=== PATIENT | female | born 1945 | race Caucasian/White ===

== ENCOUNTER 2019-02-02 13:17 | Inpatient (IN) | payer OTHER ==
[~2019-02-02] VITALS: Ht 154.9 cm; Wt 47.0 kg
[2019-02-02] MEDS ORDERED: ONDANSETRON 4 MG INJ IV STA ×2 (15:59→16:12)
[2019-02-02] MEDS ORDERED: morphine 4 MG/ML VIAL IV STA ×2 (15:59→16:12)
[2019-02-02] MEDS ORDERED: DOCU-144 PO (18:41)
[2019-02-02] MEDS ORDERED: IBUP-1542 PO (18:41)
[2019-02-02] MEDS ORDERED: ONDA4TAB14 PO (18:41)
--- NOTE | 2019-02-02 18:42 | ERD ---
ER Documentation Chief Complaint Chief Complaint epigastric AP radiating to L back X 1 wk, abdominal swelling, constipation HPI Patient is a 73-year-old female with coronary disease, hypertension, and diabetes who presents with abdominal pain. She also has shortness of breath with minimal exertion. She said that her abdominal pain started after an endoscopy in July. She has constipation and no bowel movements for 1 week. She has no vomiting. She said the pain in her abdomen radiates to her throat. She does have a primary doctor a Dr. Martínez. ROS All systems reviewed and are negative except as per history of present illness. Medications Home Meds Active Scripts Ondansetron (Ondansetron Odt) 4 Mg Tab.rapdis, 4 MG PO Q6H PRN for NAUSEA AND/OR VOMITING, #10 TAB Prov:JONY GONZALEZ MD 02/02/19 Ibuprofen* (Motrin*) 600 Mg Tab, 600 MG PO Q6H PRN for PAIN AND OR ELEVATED TEMP, #30 TAB Prov:JONY GONZALEZ MD 02/02/19 Docusate Sodium* (Colace*) 100 Mg Capsule, 100 MG PO TID, #30 CAP Prov:JONY GONZALEZ MD 02/02/19 Allergies Allergies: Coded Allergies: tetracycline (Verified Allergy, Unknown, 02/02/19) PMhx/Soc History of Surgery: Yes (hysterectomy, "heart stent") Anesthesia Reaction: No Hx Neurological Disorder: No Hx Respiratory Disorders: No Hx Cardiac Disorders: Yes (HTN) Hx Psychiatric Problems: No Hx Miscellaneous Medical Probl: Yes (DM, hypothyroid) Hx Alcohol Use: No Hx Substance Use: No Hx Tobacco Use: No Smoking Status: Never smoker FmHx Family History: diabetes Physical Exam Vitals Vital Signs Date Temp Pulse Resp B/P (MAP) Pulse Ox O2 O2 Flow FiO2 Time Delivery Rate 02/02/19 69 18 106/52 99 Room Air 18:40 (70) 02/02/19 99.2 73 18 114/79 100 13:44 (91) Physical Exam Const: Mild distress Head: Atraumatic Eyes: Normal Conjunctiva ENT: Normal External Ears, Nose and Mouth. Neck: Full range of motion. No meningismus. Resp: Clear to auscultation bilaterally Cardio: Regular rate and rhythm, no murmurs Abd: Soft, epigastric tenderness to palpation without rebound or guarding Skin: Pale skin Back: No midline or flank tenderness Ext: No cyanosis, or edema Neur: Awake and alert Psych: Normal Mood and Affect Result Diagram: 02/02/19 1559 02/02/19 1559 Results 24 hrs Laboratory Tests Test 02/02/19 15:59 02/02/19 16:00 White Blood Count 8.7 10^3/ul Red Blood Count 3.35 10^6/ul Hemoglobin 8.0 g/dl Hematocrit 26.4 % Mean Corpuscular Volume 78.8 fl Mean Corpuscular Hemoglobin 23.9 pg Mean Corpuscular Hemoglobin Concent 30.3 g/dl Red Cell Distribution Width 15.5 % Platelet Count 230 10^3/UL Mean Platelet Volume 9.7 fl Immature Granulocytes % 0.600 % Neutrophils % 60.6 % Lymphocytes % 29.2 % Monocytes % 8.7 % Eosinophils % 0.3 % Basophils % 0.6 % Nucleated Red Blood Cells % 0.0 /100WBC Immature Granulocytes # 0.050 10^3/ul Neutrophils # 5.3 10^3/ul Lymphocytes # 2.5 10^3/ul Monocytes # 0.8 10^3/ul Eosinophils # 0.0 10^3/ul Basophils # 0.1 10^3/ul Nucleated Red Blood Cells # 0.0 10^3/ul Sodium Level 143 mmol/L Potassium Level 4.2 mmol/L Chloride Level 107 mmol/L Carbon Dioxide Level 24 mmol/L Anion Gap 12 Blood Urea Nitrogen 11 mg/dl Creatinine 1.13 mg/dl Est Glomerular Filtrat Rate mL/min mL/min Glucose Level 111 mg/dl Calcium Level 9.3 mg/dl Total Bilirubin 0.3 mg/dl Direct Bilirubin 0.00 mg/dl Indirect Bilirubin 0.3 mg/dl Aspartate Amino Transf (AST/SGOT) 12 IU/L Alanine Aminotransferase (ALT/SGPT) 16 IU/L Alkaline Phosphatase 86 IU/L Troponin I < 0.012 ng/ml Total Protein 6.2 g/dl Albumin 3.7 g/dl Globulin 2.50 g/dl Albumin/Globulin Ratio 1.48 Lipase 96 U/L Urine Color STRAW Urine Clarity CLEAR Urine pH 6.0 Urine Specific [place] 1.005 Urine Ketones NEGATIVE mg/dL Urine Nitrite NEGATIVE mg/dL Urine Bilirubin NEGATIVE mg/dL Urine Urobilinogen NEGATIVE mg/dL Urine Leukocyte Esterase 1+ Felipa/ul Urine Microscopic RBC 1 /HPF Urine Microscopic WBC 4 /HPF Urine Squamous Epithelial Cells FEW /HPF Urine Hemoglobin 1+ mg/dL Urine Glucose NEGATIVE mg/dL Urine Total Protein NEGATIVE mg/dl Current Medications Medications Dose Sig/Anna Start Time Status Last (Trade) Ordered Route PRN Stop Time Admin Dose Reason Admin Morphine 4 mg ONCE STAT 02/02/19 DC 02/02/19 Sulfate IV 15:59 16:19 (morphine) 02/02/19 16:00 Ondansetron 4 mg ONCE STAT 02/02/19 DC 02/02/19 HCl (Zofran IV 15:59 16:19 Inj) 02/02/19 16:00 Morphine 4 mg ONCE STAT 02/02/19 DC Sulfate IV 16:12 (morphine) 02/02/19 16:26 Ondansetron 4 mg ONCE STAT 02/02/19 DC HCl (Zofran IV 16:12 Inj) 02/02/19 16:26 Sodium 0 ml @ 0 Q0M ONCE 02/02/19 DC Chloride mls/hr IV 18:48 02/02/19 18:49 Ondansetron 4 mg ER BRIDGE 02/02/19 HCl (Zofran PRN IV 20:00 Inj) NAUSEA/VOMITI 02/03/19 19:59 NG 650 mg ER BRIDGE 02/02/19 Acetaminophen PRN PO 20:00 (Tylenol .MILD PAIN 02/03/19 19:59 Tab) 1-3 OR TEMP Procedures/MDM EKG read by me: Rate/Rhythm: Regular rate and rhythm at a rate of 69 Intervals: Normal Impression: No evidence of ischemia or arrhythmia CT abdomen pelvis read by radiology. Ultrasound of the gallbladder read by radiology. Patient is a 73-year-old female with multiple comorbidities who presents with abdominal pain and shortness of breath. I believe she has acute symptomatic anemia with a hemoglobin of 8.0. She will be transfused 2 units of packed red blood cells. CT abdomen and pelvis shows no sign of surgical process. Ultrasound the gallbladder shows no cholecystitis. The patient will be admitted to the care of Dr. Butt from the panel team to a telemetry observation bed for blood transfusion and evaluation of abdominal pain. At this point I doubt appendicitis, cholecystitis, pancreatitis, or bowel obstruction. Critical Care: Time: 35 minutes excluding all billable procedures. Treatments/Evaluations: Close monitoring and treatment of unstable vital signs, cardiorespiratory, and neurologic status, while maintaining tight balance of fluid, respiratory, and cardiac interventions. Departure Diagnosis: Primary Impression: Abdominal pain Abdominal location: epigastric Qualified Codes: R10.13 - Epigastric pain Additional Impressions: Anemia Anemia type: unspecified type Qualified Codes: D64.9 - Anemia, unspecified Constipation Constipation type: unspecified constipation type Qualified Codes: K59.00 - Constipation, unspecified Condition: Fair Patient Instructions: Abdominal Pain, Anemia, Constipation (Adult) Referrals: Dr. Martínez Additional Instructions: Llame al doctor MAANA y anca haroon PHILIPPE PARA DENTRO DE 1-2 HUNG.Dgale a la secretaria que nosotros le instruimos hacer esta philippe.Avise o llame si ferguson condicin se empeora antes de la philippe. Regresa aqui si peor o no mejor. JONY GONZALEZ MD Feb 02, 2019 18:42
[2019-02-02] MEDS ORDERED: SOD CHLORIDE 0.9% 0 ML IV ONE (18:48)
[2019-02-02] MEDS ORDERED: METF100010 PO (19:50)
[2019-02-02] MEDS ORDERED: ESCI5TAB10 PO (19:50)
[2019-02-02] MEDS ORDERED: BENA5TAB33 PO (19:51)
[2019-02-02] MEDS ORDERED: METO-335 PO (19:51)
[2019-02-02] MEDS ORDERED: PANT40TA4 PO (19:51)
[2019-02-02] MEDS ORDERED: CLOP75TA19 PO (19:52)
[2019-02-02] MEDS ORDERED: LEVO125T7 PO (19:52)
[2019-02-02] MEDS ORDERED: ATOR40TA68 PO (19:52)
[2019-02-02] MEDS ORDERED: ASPI-817 PO (19:53)
[2019-02-02] MEDS ORDERED: SITA100T11 PO (19:53)
--- NOTE | 2019-02-02 19:55 | HP ---
Date/Time of Note Date/Time of Note DATE: 02/02/19 TIME: 19:52 Assessment/Plan VTE Prophylaxis SCD applied (from Nsg): Yes Pharmacological prophylaxis: NA/contraindicated Pharm contraindication: low risk/ambulating Lines/Catheters IV Catheter Type (from Nrsg): Saline Lock Assessment/Plan Hospital Course This is a 73-year female being admitted to the telemetry floor for: #1 Dyspnea: Possibly secondary to symptomatic anemia versus undiagnosed CHF. Patient is receiving 2 units of PRBCs in the emergency department. We do not have a previous baseline hemoglobin. Will check a stool occult blood. Check iron stores. D-dimer level is elevated, will check a CTA of the chest. Will order an echocardiogram. We will give a dose of Lasix 40 mg IV x1. BNP elevated at 1550. We will also check bilateral venous Dopplers given elevated d-dimer. #2 symptomatic microcytic anemia: We will check stool occult blood, no signs of any vaginal bleeding. Patient is ordered 2 units of PRBCs in the ED. Will check iron stores. This possibly could be chronic given her history of uterine cancer. #3 abdominal pain: CAT scan shows dilated loops of bowel possibly secondary to enteritis. No mention of obstruction. She does report she has not had a bowel movement in 7 days. This also could be a result of bladder irritation from her UTI. We will put her on bowel regimen of Colace and MiraLAX. We will also treat her for UTI with ceftriaxone IV x1 followed by Macrobid. #4 urinary tract infection: Ceftriaxone 1 g IV every 24 hours, creatinine clearance is 59 if this improves through the course can switch her to Macrobid. #5 acute versus acute on chronic kidney injury: Creatinine is 1.13. At the current time will hold HAYLIE inhibitor. She does appear to be in a mild CHF exacerbation we will give her Lasix and monitor her renal function. Will avoid NSAIDs. Avoid nephrotoxic agents #6 pulmonary nodule: Pulmonary nodule seen on CT of the abdomen and pelvis. Given the fact that she has elevated d-dimer and a history of uterine cancer, I will proceed with a CTA of the chest to further evaluate. #7 hypertension: We will hold HAYLIE inhibitor at the current time given VERONICA, continue beta-cuauhtemoc #8 hyperlipidemia: Continue statin #9 hypothyroidism, continue levothyroxine, check TSH #10 questionable coronary artery disease: She did not report any cardiac stents. We will need to confirm this with the patient, continue Plavix #11 diabetes mellitus: We will hold home oral medications at the current time, insulin sliding scale, check hemoglobin A1c #12 history of uterine cancer: Status post hysterectomy. CT of the abdomen pelvis did show pulmonary nodule, will obtain a CT of the chest given her elevated d-dimer to assess further. #13 gastritis: Continue PPI, history of EGD and colonoscopy in July 2018 that apparently were normal aside from gastritis. #14 DVT GI prophylaxis: SCDs, PPI Further treatment strategy will be implemented as per the clinical course Result Diagram: 02/02/19 1559 02/02/19 1559 Results 24hrs Laboratory Tests Test 02/02/19 15:59 02/02/19 16:00 White Blood Count 8.7 Red Blood Count 3.35 L Hemoglobin 8.0 L Hematocrit 26.4 L Mean Corpuscular Volume 78.8 L Mean Corpuscular Hemoglobin 23.9 L Mean Corpuscular Hemoglobin Concent 30.3 L Red Cell Distribution Width 15.5 H Platelet Count 230 Mean Platelet Volume 9.7 Immature Granulocytes % 0.600 H Neutrophils % 60.6 Lymphocytes % 29.2 Monocytes % 8.7 Eosinophils % 0.3 Basophils % 0.6 Nucleated Red Blood Cells % 0.0 Immature Granulocytes # 0.050 H Neutrophils # 5.3 Lymphocytes # 2.5 Monocytes # 0.8 Eosinophils # 0.0 Basophils # 0.1 Nucleated Red Blood Cells # 0.0 Sodium Level 143 Potassium Level 4.2 Chloride Level 107 Carbon Dioxide Level 24 Anion Gap 12 Blood Urea Nitrogen 11 Creatinine 1.13 H Est Glomerular Filtrat Rate mL/min Glucose Level 111 Calcium Level 9.3 Total Bilirubin 0.3 Direct Bilirubin 0.00 Indirect Bilirubin 0.3 Aspartate Amino Transf (AST/SGOT) 12 L Alanine Aminotransferase (ALT/SGPT) 16 Alkaline Phosphatase 86 Troponin I < 0.012 Total Protein 6.2 Albumin 3.7 Globulin 2.50 Albumin/Globulin Ratio 1.48 Lipase 96 Urine Color STRAW Urine Clarity CLEAR Urine pH 6.0 Urine Specific [place] 1.005 Urine Ketones NEGATIVE Urine Nitrite NEGATIVE Urine Bilirubin NEGATIVE Urine Urobilinogen NEGATIVE Urine Leukocyte Esterase 1+ H Urine Microscopic RBC 1 Urine Microscopic WBC 4 Urine Squamous Epithelial Cells FEW Urine Hemoglobin 1+ H Urine Glucose NEGATIVE Urine Total Protein NEGATIVE HPI/ROS Admit Date/Time Admit Date/Time Hx of Present Illness Chief complaint: Abdominal pain, shortness of breath This is a 73-year-old female with coronary disease, hypertension, and diabetes who presents with abdominal pain. She also has shortness of breath with minimal exertion. She said that her abdominal pain started after an endoscopy in July. She has constipation and no bowel movements for 1 week. She has no vomiting. She said the pain in her abdomen radiates to her throat. She reports in acidic-like feeling in her throat. She does report mild lower extremity swelling. She denies any chest pain or wheezing. She does have a primary doctor a Dr. Martínez. Allergies: Tetracycline Medications: See Jan Const: As per HPI Eyes : No pain discharge or redness or change in visual acuity ENT: No pain, sore throat, congestion, congestion, dysphagia or discharge Respiratory: As per HPI Cardiovascular: As per HPI GI : As per HPI Genitourinary: No dysuria, hematuria, flank pain , discharge or CVA tenderness Musculoskeletal: As per HPI Skin: No rash, bruising or hives Neuro: No headache, dizziness, syncope, seizure, focal weakness Endocrine: No polyuria, polydipsia, temperature intolerance Psych: No hallucination, depression, anxiety or suicidal ideation PMH/Family/Social Past Medical History Diabetes mellitus, hypertension, hyperlipidemia, gastritis, hypothyroidism, arthritis, history of uterine cancer, depression Medications Current Medications Ondansetron HCl (Zofran Inj) 4 mg ER BRIDGE PRN IV NAUSEA/VOMITING; Start 02/02/19 at 20:00; Stop 02/03/19 at 19:59 Acetaminophen (Tylenol Tab) 650 mg ER BRIDGE PRN PO .MILD PAIN 1-3 OR TEMP; Start 02/02/19 at 20:00; Stop 02/03/19 at 19:59 IV Flush (NS 3 ml) 3 ml PER PROTOCOL IV ; Start 02/02/19 at 20:00; Status UNV Ondansetron HCl (Zofran Inj) 4 mg Q6H PRN IV NAUSEA/VOMITING; Start 02/02/19 at 20:00; Status UNV Furosemide (Lasix) 40 mg ONCE ONCE IV ; Start 02/02/19 at 20:00; Stop 02/02/19 at 20:01; Status UNV Acetaminophen (Tylenol Tab) 650 mg Q6H PRN PO .PAIN 1-3 OR TEMP; Start 02/02/19 at 20:00; Status UNV Docusate Sodium (Colace) 100 mg Q12H PRN PO .CONSTIPATION; Start 02/02/19 at 20:00; Status UNV Bisacodyl (Dulcolax) 5 mg DAILY PRN PO .CONSTIPATION; Start 02/02/19 at 20:00; Status UNV Coded Allergies: tetracycline (Verified Allergy, Unknown, 02/02/19) Past Surgical History Hysterectomy Family History Significant Family History: no pertinent family hx Social History Alcohol Use: none Smoking Status: Never smoker Drug Use: none Exam/Review of Systems Vital Signs Vitals Vital Signs Date Temp Pulse Resp B/P (MAP) Pulse Ox O2 O2 Flow FiO2 Time Delivery Rate 02/02/19 69 18 106/52 99 Room Air 18:40 (70) 02/02/19 99.2 13:44 Exam Exam General: Patient is a pleasant female currently lying in bed in mild abdominal discomfort HEENT: Atraumatic, normocephalic. The pupils are equal, round and reactive. Extraocular motor are intact Neck: Supple with full range of motion. No rigidity or meningismus Chest: Nontender Lungs: Clear to auscultation bilaterally no crackles rales or wheezing Heart: Normal S1-S2, Regular rhythm and rate. No overt murmurs appreciated on auscultation Abdomen: Obese, generalized tenderness to palpation, nondistended , bowel sounds are present. No guarding no rebound tenderness , No masses or organomegaly. No costovertebral temporal angle mass Extremities: Normal to inspection, no edema no cyanosis Neurologic: Normal mental status, speech normal, cranial nerves II through XII are intact, motor and sensory are intact, Additional Comments PROCEDURE: US right upper quadrant abdomen. CLINICAL INDICATION: Right upper quadrant abdominal pain TECHNIQUE: Multiple real-time images were acquired of the patient's right upper quadrant abdomen utilizing a high resolution transducer. COMPARISON: None FINDINGS: The liver demonstrates mild increased echogenicity. The liver is normal in size and measures 19.8 cm in length. No focal solid lesions are seen. The portal vein is patent with normal direction of flow. No intrahepatic biliary d ilatation is seen. No gallstones are identified within the gallbladder. There is no pericholecyst ic fluid or gallbladder wall thickening. The common bile duct measures 3.4 mm in maximal diameter. The visualized portions of the pancreas are unremarkable. No free fluid is identified. The right kidney demonstrates normal echogenicity and cortical thickness. The right kidney measures 9.1 cm. There are no right kidney stones. There is no evidence of right hydronephrosis. IMPRESSION: 1. No acute abnormality. No gallstones or acute cholecystitis. No biliary ductal dilatation. 2. Mild increased echogenicity of the liver may represent hepatic steatosis. RPTAT: KK Adal Mondragon Physician Date Time Electronically viewed and signed by Adal Mondragon Physician on 02/02/2019 16:56 HtN/ CC: JONY GONZALEZ MD [id number] PROCEDURE: CT Abdomen and Pelvis without contrast CLINICAL INDICATION: Abdominal pain TECHNIQUE: Transaxial computed tomographic images of the abdomen and pelvis were obtained without intravenous contrast. Coronal and sagittal reformatted images were provided. DICOM images are available. Radiation dose: CTDIvol (mGy) = 20.58; total DLP (mGy.cm) = 1186.98. One or more of the following dose reduction techniques were used: - Automated exposure control. - Adjustment of the mA and/or kV according to patient size. - Use of iterative reconstruction technique. COMPARISON: Abdominal sonogram performed earlier on the same day. FINDINGS: The visualized lung bases demonstrate patchy bibasilar ground-glass opacities. Scattered small right lower lobe lung nodules measure up to 5 mm. There is mild bibasilar interlobular septal line thickening. There is trace left pleural effusion and mild left basilar atelectasis. Heart is mildly enlarged and partially imaged. Pancreas is moderately atrophic. Kidneys are mildly atrophic. The liver, gallbladder, spleen, adrenal glands, and kidneys have otherwise normal noncontrast appearance. There is no calcific renal calculus or hydronephrosis. There is no evidence of intestinal obstruction. There are multiple fluid-filled nondilated distal small bowel loops, nonspecific finding. The appendix is normal. There is severe atherosclerotic changes of the aorta and iliac arteries. There is no abdominal aortic aneurysm. There is no free intraperitoneal air or fluid. Urinary bladder is normal. Uterus is absent. There is no suspicious mesenteric or retroperitoneal lymphadenopathy. Bone window demonstrates moderate discogenic degenerative changes of the lumbar spine. IMPRESSION: 1. Fluid filled nondilated distal small bowel loops, nonspecific finding which could be seen in the setting of enteritis. 2. Mild cardiomegaly and findings suggestive of mild bibasilar pulmonary interstitial edema. 3. Trace left pleural effusion and mild left basilar atelectasis. 4. Small right basilar lung nodules, indeterminate. If the patient is low risk, consider option follow-up noncontrast chest CT at 12 months. RPTAT:HAJM Physician Vera Date Time Electronically viewed and signed by Physician Vera on 02/02/2019 18:21 RM/ CC: JONY GONZALEZ MD [id number] EKG Rate/Rhythm: Regular rate and rhythm at a rate of 69 Intervals: Normal Impression: No evidence of ischemia or arrhythmia MEAGHAN GARCIA Feb 02, 2019 19:55
[2019-02-02] MEDS ORDERED: ONDANSETRON 4 MG INJ IV PRN ×2 (20:00)
[2019-02-02] MEDS ORDERED: LIDOCAINE/MYLANTA 40 ML BTL PO ONE (20:00)
[2019-02-02] MEDS ORDERED: ACETAMINOPHEN 325 MG TAB PO PRN (20:00)
[2019-02-02] MEDS ORDERED: NACL 0.9% 3 ML SYG IV SCH (20:00)
[2019-02-02] MEDS ORDERED: DOCUSATE SODIUM 100 MG CAP PO PRN (20:00)
[2019-02-02] MEDS ORDERED: FUROSEMIDE 40 MG INJ IV ONE (20:00)
[2019-02-02] MEDS ORDERED: LORAZEPAM 2 MG INJ IV STA (20:14)
[2019-02-02] MEDS ORDERED: SOD CHLORIDE 0.9% 100 ML ONE (20:59)
[2019-02-02] MEDS ORDERED: IOHEXOL 100 ML ONE (20:59)
[2019-02-02] MEDS ORDERED: NITROFURANTOIN (SR) 100 MG CAP PO SCH (21:00)
[2019-02-02] MEDS ORDERED: CEFTRIAXONE 1 GM/50 ML (PMX) 50 ML IVPB ONE (21:00)
[2019-02-02 22:53] VITALS: PULSE 69; BMI 35.9
[2019-02-03] VITALS (13 sets, daily range): BP systolic 107–145; BP diastolic 51–66; PULSE 59–73; RESP 16–18; Ht 154.9 cm; Wt 47.0 kg
[2019-02-03] MEDS ORDERED: LIDOCAINE/MYLANTA 40 ML BTL PO ONE (01:00)
[2019-02-03] MEDS: DOCUSATE SODIUM 100 MG CAP PO SCH ×3 (03:56→20:22)
[2019-02-03] MEDS: PANTOPRAZOLE (EC) 40 MG TAB PO SCH ×2 (03:56→06:41)
[2019-02-03] MEDS: POLYETHYLENE GLYCOL 17 GM PACKET PO SCH ×2 (03:57→08:24)
[2019-02-03] MEDS: LEVOTHYROXINE 125 MCG TAB PO SCH (06:41)
[2019-02-03] MEDS: CLOPIDOGREL 75 MG TAB PO SCH (08:24)
[2019-02-03] MEDS: ASPIRIN (EC) 81 MG TAB PO SCH (08:25)
[2019-02-03] MEDS: ESCITALOPRAM 10 MG TAB PO SCH (08:25)
[2019-02-03] MEDS: FUROSEMIDE 40 MG INJ IV SCH (08:26)
[2019-02-03] MEDS: METOPROLOL (XL) 25 MG TAB PO SCH (08:27)
[2019-02-03] MEDS ORDERED: BENAZEPRIL 5 MG TAB PO SCH (09:00)
--- NOTE | 2019-02-03 10:48 | RADRPT ---
Echocardiogram Report Patient Name: ADRIANA GRIJALVAPatient ID: [id number] : 1945 (73y 8m)Study Date: 02/03/2019 7:32:20 AM Gender: FAccession #: [id number] Tech: DE Location: Ref.Physician: MEAGHAN GARCIA Height(Cm): BSA: Weight(Kg): Quality: AdequateAccount #: Procedures: Echocardiographic Report: Transthoracic echocardiogram with complete 2D, M-Mode, and doppler examination. Indications: Dyspnea, Cardiomegaly. Measurements: 2D/M Mode Doppler Measurement Value Normal Range Measurement Value Normal Range LVIDd 2D 4.7 [ 3.8 - 5.2 ] cm AV Peak Jose 1.5 [ 100.0 - 170.0 ] cm/sec LVIDs 2D 3.4 [ 2.2 - 3.5 ] cm AV Peak PG 9.0 [ 2.0 - 9.0 ] mmHg LVPWd 2D 1.2 [ 0.6 - 0.9 ] cm LVOT Peak Jose 0.9 [ 70.0 - 110.0 ] cm/sec IVSd 2D 1.3 [ 0.6 - 0.9 ] cm LVOT Peak PG 3.0 [ 2.0 - 6.0 ] mmHg AoR Diam 2D 2.5 [ 2.3 - 3.1 ] cm MV E Peak Jose 1.0 [ 60.0 - 130.0 ] cm/sec EDV 2D 102.0 [ 46.0 - 106.0 ] ml MV A Peak Jose 0.6 [ 100.0 - 120.0 ] cm/sec ESV 2D 46.4 [ 14.0 - 42.0 ] ml MV E/A 1.6 [ 0.8 - 1.5 ] ratio EF 2D 54.5 [ 54.0 - 74.0 ] percent MV Decel Time 239 [ 104 - 258 ] msec LA Dimen 2D 3.8 [ 2.7 - 3.8 ] cm Lat E` Jose 0.1 [ 10.0 - 15.0 ] cm/sec Lateral E/E` 14.6 [ 1.0 - 2.0 ] ratio MV E/A 1.6 [ 0.8 - 1.5 ] ratio TR Peak Jose 2.9 [ 100.0 - 280.0 ] cm/sec TR Peak PG 33.0 mmHg RVSP 43.0 [ 10.0 - 36.0 ] mmHg RA Pressure 10.0 mmHg Findings: Left Ventricle: Normal left ventricular cavity size. Mild concentric left ventricular hypertrophy. Mild left ventricular systolic dysfunction. Ejection fraction is visually estimated at 45 %. Abnormal Diastolic Function. Multiple segmental wall motion abnormalities. Right Ventricle: Normal right ventricular size. Normal right ventricular systolic function. Left Atrium: The left atrium is normal in size. Right Atrium: The right atrium is normal in size. Mitral Valve: Normal appearance of the mitral valve. Mild mitral annular calcification. Trace mitral regurgitation. Aortic Valve: No significant aortic stenosis or insufficiency. Aortic cusps appear mildly calcified. Tricuspid Valve: Normal appearance of the tricuspid valve. Estimated peak PA systolic pressure 43 mmHg. There is mild tricuspid regurgitation. Pulmonic Valve: Pulmonic valve not well visualized. Pericardium: Normal pericardium with no significant pericardial effusion. Aorta: Normal aortic root. IVC: Normal size and normal respiratory collapse consistent with normal right atrial pressure. Conclusions: Normal left ventricular cavity size. Mild concentric left ventricular hypertrophy. Mild left ventricular systolic dysfunction. Ejection fraction is visually estimated at 45 %. Abnormal Diastolic Function. Multiple segmental wall motion abnormalities. Normal appearance of the mitral valve. Mild mitral annular calcification. Trace mitral regurgitation. No significant aortic stenosis or insufficiency. Aortic cusps appear mildly calcified. Normal appearance of the tricuspid valve. Estimated peak PA systolic pressure 43 mmHg. There is mild tricuspid regurgitation. Normal size and normal respiratory collapse consistent with normal right atrial pressure. Electronically Signed By: Rodney López 2019-02-03 10:48:17 PDT
[2019-02-03] MEDS: BISACODYL (EC) 5 MG TAB PO PRN (11:02)
--- NOTE | 2019-02-03 11:23 | CONS ---
Assessment/Plan Assessment/Plan Hospital Course (Demo Recall) Congestive heart failure probably acute secondary systolic and diastolic heart failure as well as severe anemia Anemia etiology unclear Diabetes Hypertension Possible history of coronary artery disease and PCI Depression History of gynecological cancers Recommendations: Continue with IV Lasix daily and adjust as needed Anemia workup as per internal medicine Continue with HAYLIE inhibitor Diabetic management as per internal medicine Thank you for his referral. We will continue to follow along with you HENNY GALINDO MD FAC Consultation Date/Type/Reason Admit Date/Time Date of Consultation: Feb 03, 2019 Type of Consult Cardiology Reason for Consultation CV Requesting Provider: MEAGHAN GARCIA Date/Time of Note DATE: 02/03/19 TIME: 11:18 Hx of Present Illness Interventional cardiology consultation note Chief complaint: Abdominal pain. Shortness of breath Reason for consult: CHF History of present illness: Thank you for this referral. This is a 81-year-old female who presented to emergency room with mostly complaint of diffuse abdominal discomfort and pain. Patient also has had shortness of breath. Denies any chest pain or pressure to me. She was noted to be severely anemic hemoglobin of 8 as well as chest x-ray showing fluid overload/congestive heart failure. Currently asked to evaluate and treat. Allergies: Tetracycline Medications were reviewed as per medical reconciliation sheet Family history: Patient's son with coronary artery disease Social history: Does not smoke or drink Past medical history: Diabetes mellitus, hypertension, hyperlipidemia, gastritis, hypothyroidism, arthritis, history of uterine cancer, depression She also reports to me that she probably has had angioplasty and stent done many years ago although details not clear and she is not very clear about it Review of system: Patient denies all others except for above-mentioned Past Medical History Home Meds Active Scripts Ondansetron (Ondansetron Odt) 4 Mg Tab.rapdis, 4 MG PO Q6H PRN for NAUSEA AND/OR VOMITING, #10 TAB Prov:JONY GONZALEZ MD 02/02/19 Ibuprofen* (Motrin*) 600 Mg Tab, 600 MG PO Q6H PRN for PAIN AND OR ELEVATED TEMP, #30 TAB Prov:JONY GONZALEZ MD 02/02/19 Docusate Sodium* (Colace*) 100 Mg Capsule, 100 MG PO TID, #30 CAP Prov:JONY GONZALEZ MD 02/02/19 Reported Medications Aspirin* (Aspirin* EC) 81 Mg Tablet.dr, 81 MG PO DAILY, TAB 02/02/19 Sitagliptin* (Januvia*) 100 Mg Tablet, 100 MG PO DAILY, #30 TAB 02/02/19 Clopidogrel Bisulfate* (Clopidogrel Bisulfate*) 75 Mg Tablet, 75 MG PO DAILY, #30 TAB 02/02/19 Atorvastatin* (Atorvastatin*) 40 Mg Tablet, 40 MG PO QHS, #30 TAB 02/02/19 Levothyroxine Sodium* (Levothyroxine Sodium*) 125 Mcg Tablet, 125 MCG PO BEFORE BREAKFAST, #30 TAB 02/02/19 Metoprolol Succinate* (Toprol XL*) 25 Mg Tab.sr.24h, 25 MG PO DAILY, #30 TAB 02/02/19 Pantoprazole* (Pantoprazole*) 40 Mg Tablet.dr, 40 MG PO AC BREAKFAST, TAB 02/02/19 Benazepril Hcl* (Benazepril Hcl*) 5 Mg Tablet, 5 MG PO DAILY, #30 TAB 02/02/19 Metformin Hcl* (Metformin Hcl*) 1,000 Mg Tablet, 1000 MG PO WITH BREAKFAST DINNE, #60 TAB 02/02/19 Escitalopram Oxalate* (Escitalopram Oxalate*) 5 Mg Tablet, 5 MG PO DAILY, #30 TAB 02/02/19 Medications Current Medications IV Flush (NS 3 ml) 3 ml PER PROTOCOL IV ; Start 02/02/19 at 20:00 Ondansetron HCl (Zofran Inj) 4 mg Q6H PRN IV NAUSEA/VOMITING; Start 02/02/19 at 20:00 Acetaminophen (Tylenol Tab) 650 mg Q6H PRN PO .PAIN 1-3 OR TEMP; Start 02/02/19 at 20:00 Docusate Sodium (Colace) 100 mg Q12H PRN PO .CONSTIPATION; Start 02/02/19 at 20:00 Bisacodyl (Dulcolax) 5 mg DAILY PRN PO .CONSTIPATION Last administered on 02/03/19at 11:02; Admin Dose 5 MG; Start 02/02/19 at 20:00 Docusate Sodium (Colace) 100 mg BID PO Last administered on 02/03/19at 08:25; Admin Dose 100 MG; Start 02/03/19 at 01:00 Polyethylene Glycol (Miralax) 17 gm DAILY PO Last administered on 02/03/19 08:24; Admin Dose 17 GM; Start 02/03/19 at 01:00 Pantoprazole (Protonix Tab) 40 mg DAILY@06 PO Last administered on 02/03/19 06:41; Admin Dose 40 MG; Start 02/03/19 at 01:00 Furosemide (Lasix) 40 mg DAILY IV Last administered on 02/03/19 08:26; Admin Dose 40 MG; Start 02/03/19 at 09:00 Aspirin (Halfprin) 81 mg DAILY PO Last administered on 02/03/19 08:25; Admin Dose 81 MG; Start 02/03/19 at 09:00 Atorvastatin Calcium (Lipitor) 40 mg QHS PO ; Start 02/03/19 at 21:00 Clopidogrel Bisulfate (plaVIX) 75 mg DAILY PO Last administered on 02/03/19 08:24; Admin Dose 75 MG; Start 02/03/19 at 09:00 Escitalopram Oxalate (Lexapro) 5 mg DAILY PO Last administered on 02/03/19 08:25; Admin Dose 5 MG; Start 02/03/19 at 09:00 Levothyroxine Sodium (Synthroid) 125 mcg BEFORE BREAKFAST PO Last administered on 02/03/19 06:41; Admin Dose 125 MCG; Start 02/03/19 at 07:00 Metoprolol Succinate (Toprol Xl) 25 mg DAILY PO Last administered on 02/03/19 08:27; Admin Dose 25 MG; Start 02/03/19 at 09:00 Ceftriaxone Sodium 50 ml @ 100 mls/hr Q24H IVPB ; Start 02/03/19 at 20:00 Allergies: Coded Allergies: tetracycline (Verified Allergy, Unknown, 02/02/19) Social History Alcohol Use: none Smoking Status: Never smoker Drug Use: none Exam/Review of Systems Vital Signs Vitals Vital Signs Date Temp Pulse Resp B/P (MAP) Pulse Ox O2 O2 Flow FiO2 Time Delivery Rate 02/03/19 73 08:20 02/03/19 98.6 16 145/66 99 07:33 (92) 02/02/19 Room Air 22:00 Intake and Output 02/02/19 02/02/19 02/03/19 1515:00 23:00 07:00 IntakeIntake Total 350 ml 750 ml BalanceBalance 350 ml 750 ml Exam Exam General: Obese female in no acute distress HEENT: NC/AT. pupils are equal. round. NECK: NO JVD. no stridor. CV: RRR. systolic murmur; no gallop or rubs. PULM: no wheezing or rhonchi. GI: SOFT, NT, ND, no rebound or guarding Extremity: trace B/L LE edema. no clubbing. neuro: awake and alert, OX3. Psych: calm and pleasant rectal: deferred : normal EKG showed normal sinus rhythm. Poor R wave progression Echocardiogram was personally reviewed which shows: Normal left ventricular cavity size. Mild concentric left ventricular hypertrophy. Mild left ventricular systolic dysfunction. Ejection fraction is visually estimated at 45 %. Abnormal Diastolic Function. Multiple segmental wall motion abnormalities. Normal appearance of the mitral valve. Mild mitral annular calcification. Trace mitral regurgitation. No significant aortic stenosis or insufficiency. Aortic cusps appear mildly calcified. Normal appearance of the tricuspid valve. Estimated peak PA systolic pressure 43 mmHg. There is mild tricuspid regurgitation. Normal size and normal respiratory collapse consistent with normal right atrial pressure. Labs Result Diagram: 02/03/19 0553 02/03/19 0553 Results 24hrs Laboratory Tests Test 02/02/19 15:59 02/02/19 16:00 02/03/19 05:53 White Blood Count 8.7 8.8 Red Blood Count 3.35 L 4.09 #L Hemoglobin 8.0 L 9.9 #L Hematocrit 26.4 L 32.3 #L Mean Corpuscular Volume 78.8 L 79.0 L Mean Corpuscular Hemoglobin 23.9 L 24.2 L Mean Corpuscular Hemoglobin Concent 30.3 L 30.7 L Red Cell Distribution Width 15.5 H 15.4 H Platelet Count 230 217 Mean Platelet Volume 9.7 10.3 Immature Granulocytes % 0.600 H 0.300 Neutrophils % 60.6 59.3 Lymphocytes % 29.2 26.7 Monocytes % 8.7 12.4 H Eosinophils % 0.3 0.7 Basophils % 0.6 0.6 Nucleated Red Blood Cells % 0.0 0.0 Immature Granulocytes # 0.050 H 0.030 Neutrophils # 5.3 5.2 Lymphocytes # 2.5 2.4 Monocytes # 0.8 1.1 H Eosinophils # 0.0 0.1 Basophils # 0.1 0.1 Nucleated Red Blood Cells # 0.0 0.0 D-Dimer 1307.24 H D-Dimer Comment Sodium Level 143 142 Potassium Level 4.2 4.0 Chloride Level 107 102 Carbon Dioxide Level 24 30 Anion Gap 12 10 Blood Urea Nitrogen 11 14 Creatinine 1.13 H 1.09 H Est Glomerular Filtrat Rate mL/min Glucose Level 111 161 Calcium Level 9.3 9.1 Total Bilirubin 0.3 0.7 Direct Bilirubin 0.00 0.00 Indirect Bilirubin 0.3 0.7 Aspartate Amino Transf (AST/SGOT) 12 L 14 L Alanine Aminotransferase (ALT/SGPT) 16 11 L Alkaline Phosphatase 86 83 Troponin I < 0.012 B-Type Natriuretic Peptide 1550 H Total Protein 6.2 6.6 Albumin 3.7 3.7 Globulin 2.50 2.90 Albumin/Globulin Ratio 1.48 1.27 Lipase 96 Urine Color STRAW Urine Clarity CLEAR Urine pH 6.0 Urine Specific [place] 1.005 Urine Ketones NEGATIVE Urine Nitrite NEGATIVE Urine Bilirubin NEGATIVE Urine Urobilinogen NEGATIVE Urine Leukocyte Esterase 1+ H Urine Microscopic RBC 1 Urine Microscopic WBC 4 Urine Squamous Epithelial Cells FEW Urine Hemoglobin 1+ H Urine Glucose NEGATIVE Urine Total Protein NEGATIVE Hemoglobin A1c 7.6 H Magnesium Level 1.5 L Iron Level 45 Total Iron Binding Capacity 270 Percent Iron Saturation 17 L Ferritin 7.3 L Triglycerides Level 130 Cholesterol Level 165 LDL Cholesterol, Calculated 93 HDL Cholesterol 46 Cholesterol/HDL Ratio 3.5 Thyroid Stimulating Hormone (TSH) 0.651 Medications Medications Current Medications IV Flush (NS 3 ml) 3 ml PER PROTOCOL IV ; Start 02/02/19 at 20:00 Ondansetron HCl (Zofran Inj) 4 mg Q6H PRN IV NAUSEA/VOMITING; Start 02/02/19 at 20:00 Acetaminophen (Tylenol Tab) 650 mg Q6H PRN PO .PAIN 1-3 OR TEMP; Start 02/02/19 at 20:00 Docusate Sodium (Colace) 100 mg Q12H PRN PO .CONSTIPATION; Start 02/02/19 at 20:00 Bisacodyl (Dulcolax) 5 mg DAILY PRN PO .CONSTIPATION Last administered on 02/03/19at 11:02; Admin Dose 5 MG; Start 02/02/19 at 20:00 Docusate Sodium (Colace) 100 mg BID PO Last administered on 02/03/19at 08:25; Admin Dose 100 MG; Start 02/03/19 at 01:00 Polyethylene Glycol (Miralax) 17 gm DAILY PO Last administered on 02/03/19 08:24; Admin Dose 17 GM; Start 02/03/19 at 01:00 Pantoprazole (Protonix Tab) 40 mg DAILY@06 PO Last administered on 02/03/19 06:41; Admin Dose 40 MG; Start 02/03/19 at 01:00 Furosemide (Lasix) 40 mg DAILY IV Last administered on 02/03/19 08:26; Admin Dose 40 MG; Start 02/03/19 at 09:00 Aspirin (Halfprin) 81 mg DAILY PO Last administered on 02/03/19 08:25; Admin Dose 81 MG; Start 02/03/19 at 09:00 Atorvastatin Calcium (Lipitor) 40 mg QHS PO ; Start 02/03/19 at 21:00 Clopidogrel Bisulfate (plaVIX) 75 mg DAILY PO Last administered on 02/03/19 08:24; Admin Dose 75 MG; Start 02/03/19 at 09:00 Escitalopram Oxalate (Lexapro) 5 mg DAILY PO Last administered on 02/03/19 08:25; Admin Dose 5 MG; Start 02/03/19 at 09:00 Levothyroxine Sodium (Synthroid) 125 mcg BEFORE BREAKFAST PO Last administered on 02/03/19 06:41; Admin Dose 125 MCG; Start 02/03/19 at 07:00 Metoprolol Succinate (Toprol Xl) 25 mg DAILY PO Last administered on 02/03/19 08:27; Admin Dose 25 MG; Start 02/03/19 at 09:00 Ceftriaxone Sodium 50 ml @ 100 mls/hr Q24H IVPB ; Start 02/03/19 at 20:00 HENNY GALINDO MD Feb 03, 2019 11:23
[2019-02-03] MEDS: BENAZEPRIL 5 MG TAB PO SCH ×2 (11:49→20:23)
--- NOTE | 2019-02-03 12:15 | PN ---
Date/Time of Note Date/Time of Note DATE: 02/03/19 TIME: 12:12 Assessment/Plan VTE Prophylaxis Risk score (from Nsg)>0 risk: 4 SCD applied (from Ns): Yes Pharmacological prophylaxis: NA/contraindicated Pharm contraindication: anticoag not tolerated Lines/Catheters IV Catheter Type (from Nrsg): Peripheral IV Assessment/Plan Hospital Course S: still reporting abd pain, pain is in epigastric region and towards L sided of abd and L flank -had a minimal BM earlier O: General: Anxious, A&O x3, answering questions appropriately HEENT: NC/ AT. PERRL. EOM intact Neck: supple CVS: S1, S2, RRR. no murmurs. no pain on chest wall palpation Lungs: CTA b/l. no wheezing or rhonchi, diminished Abd: soft, no gorss tendernesss on exam, patient does look uncomfortable Ext: moving all extremities skin: no rashes CT 1. Fluid filled nondilated distal small bowel loops, nonspecific finding which could be seen in the setting of enteritis. 2. Mild cardiomegaly and findings suggestive of mild bibasilar pulmonary interstitial edema. 3. Trace left pleural effusion and mild left basilar atelectasis. 4. Small right basilar lung nodules, indeterminate. If the patient is low risk, consider option follow-up noncontrast chest CT at 12 months. assessment and plan: 73-year-old female with coronary disease, hypertension, and diabetes who pres ents with abdominal pain. She also has shortness of breath with minimal exertion. She said that her abdominal pain started after an endoscopy in July. She has constipation and no bowel movements for 1 week. She is currently managed as follows: 1. Acute CHF 2. severe symptomatic anemia improved post 2 units of PRBC -recent EGD / colon only showed gastritis in 08/06, will try to get records -SOBT pending -continue PPI 3. abd pain 2/2 enteritis ? versus other process? -L sided pain and there's L sided atelectasis and L sided small effusion on CT and CXR (L sided pneumonia ?) -CT chest ordered and pending, f/u findings 4. multiple lung nodules: -f/u chest CT 5.Chronic kidney injury: -Creatinine seems to be at baseline -Continue to hold HAYLIE inhibitor for now . avoid nephrotoxins as much as possible -ongoing diuresis re : #2, monitor indices closely 6. hypertension: -ACEi on hold, continue BB 7. hyperlipidemia: Continue statin 8. hypothyroidism, continue levothyroxine, 9. Hx of coronary artery disease? -Patient continued on home Plavix, may need GI review to clear for continued usage 10 diabetes mellitus -a1C 7.5 -continue and titrate regimen as indicated 11. history of uterine cancer: Status post hysterectomy. - CT of the abdomen pelvis did show pulmonary nodules, f/u chest CT dispo: -continue diuresis, f/u imaging, adjust abx, await clinical improvement Result Diagram: 02/03/19 0553 02/03/19 0553 Results 24hrs Laboratory Tests Test 02/02/19 15:59 02/02/19 16:00 02/03/19 05:53 White Blood Count 8.7 8.8 Red Blood Count 3.35 L 4.09 #L Hemoglobin 8.0 L 9.9 #L Hematocrit 26.4 L 32.3 #L Mean Corpuscular Volume 78.8 L 79.0 L Mean Corpuscular Hemoglobin 23.9 L 24.2 L Mean Corpuscular Hemoglobin Concent 30.3 L 30.7 L Red Cell Distribution Width 15.5 H 15.4 H Platelet Count 230 217 Mean Platelet Volume 9.7 10.3 Immature Granulocytes % 0.600 H 0.300 Neutrophils % 60.6 59.3 Lymphocytes % 29.2 26.7 Monocytes % 8.7 12.4 H Eosinophils % 0.3 0.7 Basophils % 0.6 0.6 Nucleated Red Blood Cells % 0.0 0.0 Immature Granulocytes # 0.050 H 0.030 Neutrophils # 5.3 5.2 Lymphocytes # 2.5 2.4 Monocytes # 0.8 1.1 H Eosinophils # 0.0 0.1 Basophils # 0.1 0.1 Nucleated Red Blood Cells # 0.0 0.0 D-Dimer 1307.24 H D-Dimer Comment Sodium Level 143 142 Potassium Level 4.2 4.0 Chloride Level 107 102 Carbon Dioxide Level 24 30 Anion Gap 12 10 Blood Urea Nitrogen 11 14 Creatinine 1.13 H 1.09 H Est Glomerular Filtrat Rate mL/min Glucose Level 111 161 Calcium Level 9.3 9.1 Total Bilirubin 0.3 0.7 Direct Bilirubin 0.00 0.00 Indirect Bilirubin 0.3 0.7 Aspartate Amino Transf (AST/SGOT) 12 L 14 L Alanine Aminotransferase (ALT/SGPT) 16 11 L Alkaline Phosphatase 86 83 Troponin I < 0.012 B-Type Natriuretic Peptide 1550 H Total Protein 6.2 6.6 Albumin 3.7 3.7 Globulin 2.50 2.90 Albumin/Globulin Ratio 1.48 1.27 Lipase 96 Urine Color STRAW Urine Clarity CLEAR Urine pH 6.0 Urine Specific [place] 1.005 Urine Ketones NEGATIVE Urine Nitrite NEGATIVE Urine Bilirubin NEGATIVE Urine Urobilinogen NEGATIVE Urine Leukocyte Esterase 1+ H Urine Microscopic RBC 1 Urine Microscopic WBC 4 Urine Squamous Epithelial Cells FEW Urine Hemoglobin 1+ H Urine Glucose NEGATIVE Urine Total Protein NEGATIVE Hemoglobin A1c 7.6 H Magnesium Level 1.5 L Iron Level 45 Total Iron Binding Capacity 270 Percent Iron Saturation 17 L Ferritin 7.3 L Triglycerides Level 130 Cholesterol Level 165 LDL Cholesterol, Calculated 93 HDL Cholesterol 46 Cholesterol/HDL Ratio 3.5 Thyroid Stimulating Hormone (TSH) 0.651 Exam/Review of Systems Exam Vitals Vital Signs Date Temp Pulse Resp B/P (MAP) Pulse Ox O2 O2 Flow FiO2 Time Delivery Rate 02/03/19 63 12:06 02/03/19 98.9 16 137/61 97 11:32 (86) 02/02/19 Room Air 22:00 Intake and Output 02/02/19 02/02/19 02/03/19 1515:00 23:00 07:00 IntakeIntake Total 350 ml 750 ml BalanceBalance 350 ml 750 ml Results Results 24hrs Laboratory Tests Test 02/02/19 15:59 02/02/19 16:00 02/03/19 05:53 White Blood Count 8.7 8.8 Red Blood Count 3.35 L 4.09 #L Hemoglobin 8.0 L 9.9 #L Hematocrit 26.4 L 32.3 #L Mean Corpuscular Volume 78.8 L 79.0 L Mean Corpuscular Hemoglobin 23.9 L 24.2 L Mean Corpuscular Hemoglobin Concent 30.3 L 30.7 L Red Cell Distribution Width 15.5 H 15.4 H Platelet Count 230 217 Mean Platelet Volume 9.7 10.3 Immature Granulocytes % 0.600 H 0.300 Neutrophils % 60.6 59.3 Lymphocytes % 29.2 26.7 Monocytes % 8.7 12.4 H Eosinophils % 0.3 0.7 Basophils % 0.6 0.6 Nucleated Red Blood Cells % 0.0 0.0 Immature Granulocytes # 0.050 H 0.030 Neutrophils # 5.3 5.2 Lymphocytes # 2.5 2.4 Monocytes # 0.8 1.1 H Eosinophils # 0.0 0.1 Basophils # 0.1 0.1 Nucleated Red Blood Cells # 0.0 0.0 D-Dimer 1307.24 H D-Dimer Comment Sodium Level 143 142 Potassium Level 4.2 4.0 Chloride Level 107 102 Carbon Dioxide Level 24 30 Anion Gap 12 10 Blood Urea Nitrogen 11 14 Creatinine 1.13 H 1.09 H Est Glomerular Filtrat Rate mL/min Glucose Level 111 161 Calcium Level 9.3 9.1 Total Bilirubin 0.3 0.7 Direct Bilirubin 0.00 0.00 Indirect Bilirubin 0.3 0.7 Aspartate Amino Transf (AST/SGOT) 12 L 14 L Alanine Aminotransferase (ALT/SGPT) 16 11 L Alkaline Phosphatase 86 83 Troponin I < 0.012 B-Type Natriuretic Peptide 1550 H Total Protein 6.2 6.6 Albumin 3.7 3.7 Globulin 2.50 2.90 Albumin/Globulin Ratio 1.48 1.27 Lipase 96 Urine Color STRAW Urine Clarity CLEAR Urine pH 6.0 Urine Specific [place] 1.005 Urine Ketones NEGATIVE Urine Nitrite NEGATIVE Urine Bilirubin NEGATIVE Urine Urobilinogen NEGATIVE Urine Leukocyte Esterase 1+ H Urine Microscopic RBC 1 Urine Microscopic WBC 4 Urine Squamous Epithelial Cells FEW Urine Hemoglobin 1+ H Urine Glucose NEGATIVE Urine Total Protein NEGATIVE Hemoglobin A1c 7.6 H Magnesium Level 1.5 L Iron Level 45 Total Iron Binding Capacity 270 Percent Iron Saturation 17 L Ferritin 7.3 L Triglycerides Level 130 Cholesterol Level 165 LDL Cholesterol, Calculated 93 HDL Cholesterol 46 Cholesterol/HDL Ratio 3.5 Thyroid Stimulating Hormone (TSH) 0.651 Medications Medication Current Medications IV Flush (NS 3 ml) 3 ml PER PROTOCOL IV ; Start 02/02/19 at 20:00 Ondansetron HCl (Zofran Inj) 4 mg Q6H PRN IV NAUSEA/VOMITING; Start 02/02/19 at 20:00 Acetaminophen (Tylenol Tab) 650 mg Q6H PRN PO .PAIN 1-3 OR TEMP; Start 02/02/19 at 20:00 Docusate Sodium (Colace) 100 mg Q12H PRN PO .CONSTIPATION; Start 02/02/19 at 20:00 Bisacodyl (Dulcolax) 5 mg DAILY PRN PO .CONSTIPATION Last administered on 02/03/19 11:02; Admin Dose 5 MG; Start 02/02/19 at 20:00 Docusate Sodium (Colace) 100 mg BID PO Last administered on 02/03/19 08:25; Admin Dose 100 MG; Start 02/03/19 at 01:00 Polyethylene Glycol (Miralax) 17 gm DAILY PO Last administered on 02/03/19 08:24; Admin Dose 17 GM; Start 02/03/19 at 01:00 Pantoprazole (Protonix Tab) 40 mg DAILY@06 PO Last administered on 02/03/19 06:41; Admin Dose 40 MG; Start 02/03/19 at 01:00 Furosemide (Lasix) 40 mg DAILY IV Last administered on 02/03/19 08:26; Admin Dose 40 MG; Start 02/03/19 at 09:00 Aspirin (Halfprin) 81 mg DAILY PO Last administered on 02/03/19 08:25; Admin Dose 81 MG; Start 02/03/19 at 09:00 Atorvastatin Calcium (Lipitor) 40 mg QHS PO ; Start 02/03/19 at 21:00 Clopidogrel Bisulfate (plaVIX) 75 mg DAILY PO Last administered on 02/03/19 08:24; Admin Dose 75 MG; Start 02/03/19 at 09:00 Escitalopram Oxalate (Lexapro) 5 mg DAILY PO Last administered on 02/03/19 08:25; Admin Dose 5 MG; Start 02/03/19 at 09:00 Levothyroxine Sodium (Synthroid) 125 mcg BEFORE BREAKFAST PO Last administered on 02/03/19 06:41; Admin Dose 125 MCG; Start 02/03/19 at 07:00 Metoprolol Succinate (Toprol Xl) 25 mg DAILY PO Last administered on 02/03/19 08:27; Admin Dose 25 MG; Start 02/03/19 at 09:00 Ceftriaxone Sodium 50 ml @ 100 mls/hr Q24H IVPB ; Start 02/03/19 at 20:00 Benazepril HCl (Lotensin) 5 mg BID PO Last administered on 02/03/19 11:49; Admin Dose 5 MG; Start 02/03/19 at 11:30 NATHEN MONTERO 19, 2019 12:15
[2019-02-03] MEDS ORDERED: DEXTROSE 50% 50 ML SYRINGE IV PRN ×2 (12:30)
[2019-02-03] MEDS ORDERED: GLUCOSE GEL 15 GRAM TUBE PO PRN ×2 (12:30)
[2019-02-03] MEDS ORDERED: GLUCOSE GEL 15 GRAM TUBE BUCCAL PRN (12:30)
[2019-02-03] MEDS ORDERED: GLUCAGON 1 MG INJ IM PRN (12:30)
[2019-02-03] MEDS: INSULIN ASPART [NOVOLOG] 3 ML PEN SC SCH ×5 (12:48→20:30)
[2019-02-03] MEDS ORDERED: MAGNESIUM SULFATE 2 GM/50 ML 50 ML IVPB ONE (13:00)
[2019-02-03] MEDS ORDERED: LORAZEPAM 2 MG INJ IV ONE (13:30)
[2019-02-03] MEDS ORDERED: MAGNESIUM CITRATE 300 ML BTL PO ONE (13:30)
[2019-02-03] MEDS ORDERED: metroNIDAZOLE 500 MG TAB PO SCH (14:00)
[2019-02-03] MEDS ORDERED: SOD FERRIC GLUC COMPLX 125 MG in SOD CHLORIDE 0.9% 100 ML IVPB ONE (17:00)
--- NOTE | 2019-02-03 17:52 | CONS ---
DATE OF ADMISSION: 02/02/2019 DATE OF CONSULTATION: TYPE OF CONSULTATION: Gastroenterology. Dear Dr. Garcia: Thank you for asking me to see Mrs. Andrew Bloom in GI consultation. HISTORY OF PRESENT ILLNESS: The patient, as you know, is a 73-year-old female who has been experiencing shortness of breath on exertion for the past several days and hence, she was admitted to the hospital. She was found to have anemia; however chest x-ray did not show congestive heart failu re. She has history of chronic heartburn which is usually controlled by the medication, omeprazole. She has got some nausea and significant heartburn from time to time. No history of vomiting blood o r passing blood from the rectum. She received 2 units of packed cells transfusion in the hospital. She also has got a microcytic hypochromic anemia, abdominal pain which is nonspecific as mentioned ab ove. She has also urinary tract infection, some kind of kidney injury with prerenal azotemia, pulmon corinna nodule, history of hypertension, hypothyroidism, possible coronary artery disease and also she castillo s diabetes, history of uterine cancer for which she underwent hysterectomy. MEDICATIONS PRIOR TO ADMISSION: Include: 1. Clopidogrel. 2. Atorvastatin. 3. Benazepril. 4. Metoprolol. 5. Aspirin. 6. Escitalopram. 7. Ibuprofen. 8. Docusate. 9. Ondansetron. 10. Pantoprazole. 11. Levothyroxine. 12. Metformin and sitagliptin. 13. Januvia. PAST MEDICAL HISTORY: Includes no surgeries. REVIEW OF SYSTEMS: Essentially as mentioned above. PHYSICAL EXAMINATION: GENERAL: The patient is a 73-year-old female who at this time is pretty alert, mildly obese . VITAL SIGNS: She is afebrile, temperature 97.7, blood pressure 107/51, pulse is 64 which is regular. CARDIOVASCULAR: Normal heart sounds. RESPIRATORY: Normal breath sounds. ABDOMEN: Shows soft abdomen with obesity. LABORATORY WORKUP: The hemoglobin is down to 8.0, on admission it was 9.9. Coagulation: PT and PTT are not available. Potassium 4.0, BUN is 14, creatinine 1.13. AST 12, ALT 16, alkaline phosphatase 86. Lipase is 96. DIAGNOSTIC DATA: Chest x-ray shows no active disease, no congestive heart failure, mild cardiomegaly noted with some early pulmonary edema. CLINICAL IMPRESSION: From the gastrointestinal standpoint, she has severe anemia, rule out gastroint estinal causes including peptic ulcer disease, gastrointestinal malignancy. Anemia could be anemia of chronic disease. She has multiple medical problems as mentioned above. PLAN: I recommend upper endoscopy as well as lower endoscopy. Once again, doctor, thank you for this consultation. Dictated By: MERY GONZALEZ MD NC/NTS Conf#: [id number] DID#: [id number] CC: MEAGHAN GARCIA MD; HENNY GALINDO MD;*EndCC*
[2019-02-03] MEDS ORDERED: CIPROFLOXACIN 500 MG TAB PO SCH (18:00)
[2019-02-03] MEDS ORDERED: INSULIN ASPART [NOVOLOG] 3 ML PEN SC SCH (18:00)
[2019-02-03] MEDS ORDERED: CEFTRIAXONE 1 GM/50 ML (PMX) 50 ML IVPB SCH (20:00)
[2019-02-03] MEDS: ATORVASTATIN 40 MG TAB PO SCH (20:23)
[2019-02-03] MEDS: INSULIN GLARGINE [LANTus] (100 UNITS/ML) SYG SC SCH (20:44)
[2019-02-03] MEDS: metroNIDAZOLE 500 MG/NS (PMX) 100 ML IVPB SCH (22:44)
[2019-02-03] MEDS ORDERED: traZODone 100 MG TAB PO ONE (23:03)
[2019-02-04] VITALS (11 sets, daily range): BP systolic 103–145; BP diastolic 51–65; PULSE 58–73; RESP 16–20
[2019-02-04] MEDS: ACCU-CHEK XX SCH (02:00)
[2019-02-04] MEDS: PANTOPRAZOLE (EC) 40 MG TAB PO SCH (06:19)
[2019-02-04] MEDS: metroNIDAZOLE 500 MG/NS (PMX) 100 ML IVPB SCH ×2 (06:19→13:00)
[2019-02-04] MEDS: LEVOTHYROXINE 125 MCG TAB PO SCH (06:19)
[2019-02-04] MEDS: INSULIN ASPART [NOVOLOG] 3 ML PEN SC SCH ×7 (07:57→22:04)
[2019-02-04] MEDS: POLYETHYLENE GLYCOL 17 GM PACKET PO SCH (08:44)
[2019-02-04] MEDS: FUROSEMIDE 40 MG INJ IV SCH (08:44)
[2019-02-04] MEDS: ASPIRIN (EC) 81 MG TAB PO SCH (08:44)
[2019-02-04] MEDS: DOCUSATE SODIUM 100 MG CAP PO SCH ×2 (08:44→21:12)
[2019-02-04] MEDS: ESCITALOPRAM 10 MG TAB PO SCH (08:44)
[2019-02-04] MEDS: CLOPIDOGREL 75 MG TAB PO SCH (08:45)
[2019-02-04] MEDS: CIPROFLOXACIN 400MG/D5W 200 ML IVPB SCH ×2 (08:45→21:13)
[2019-02-04] MEDS: METOPROLOL (XL) 25 MG TAB PO SCH (08:45)
[2019-02-04] MEDS: BENAZEPRIL 5 MG TAB PO SCH ×2 (08:45→21:11)
--- NOTE | 2019-02-04 09:36 | CONS ---
Consult Date/Type/Reason Admit Date/Time Feb 02, 2019 at 19:43 Initial Consult Date 02/03/19 Type of Consultation: cv Requesting Provider: MEAGHAN GARCIA Date/Time of Note DATE: 02/04/19 TIME: 09:34 Subjective Cardiology follow-up progress note Subjective: Case discussed with the staff and telemetry was reviewed. Patient remains sinus rhythm No chest pain or pressure. He still complains of abdominal discomfort Objective: General: Obese female in no acute distress HEENT: NC/AT. pupils are equal. round. NECK: NO JVD. no stridor. CV: RRR. systolic murmur; no gallop or rubs. PULM: no wheezing or rhonchi. GI: SOFT, NT, ND, no rebound or guarding Extremity: trace B/L LE edema. no clubbing. neuro: awake and alert, OX3. Psych: calm and pleasant rectal: deferred : normal EKG showed normal sinus rhythm. Poor R wave progression Echocardiogram was personally reviewed which shows: Normal left ventricular cavity size. Mild concentric left ventricular hypertrophy. Mild left ventricular systolic dysfunction. Ejection fraction is visually estimated at 45 %. Abnormal Diastolic Function. Multiple segmental wall motion abnormalities. Normal appearance of the mitral valve. Mild mitral annular calcification. Trace mitral regurgitation. No significant aortic stenosis or insufficiency. Aortic cusps appear mildly calcified. Normal appearance of the tricuspid valve. Estimated peak PA systolic pressure 43 mmHg. There is mild tricuspid regurgitation. Normal size and normal respiratory collapse consistent with normal right atrial pressure. Objective Vitals Vital Signs Date Temp Pulse Resp B/P (MAP) Pulse Ox O2 O2 Flow FiO2 Time Delivery Rate 02/04/19 98.1 62 20 133/60 95 Room Air 07:30 (84) Intake and Output 02/03/19 02/03/19 02/04/19 1515:00 23:00 07:00 IntakeIntake Total 50 ml 800 ml BalanceBalance 50 ml 800 ml Results/Medications Result Diagram: 02/03/19 0553 02/04/19 0517 Results 24 hrs Laboratory Tests Test 02/03/19 12:12 02/03/19 17:20 02/03/19 20:26 02/04/19 05:17 Bedside Glucose 204 145 178 Sodium Level 140 Potassium Level 4.1 Chloride Level 100 Carbon Dioxide Level 29 Anion Gap 11 Blood Urea Nitrogen 16 Creatinine 1.14 H Est Glomerular Filtrat Rate mL/min Glucose Level 180 Calcium Level 9.0 Magnesium Level 2.3 Total Bilirubin 0.4 Direct Bilirubin 0.00 Indirect Bilirubin 0.4 Aspartate Amino 14 L Transf (AST/SGOT) Alanine 14 Aminotransferase (AL T/SGPT) Alkaline Phosphatase 86 B-Type Natriuretic 692 H Peptide Total Protein 6.3 Albumin 3.5 Globulin 2.80 Albumin/Globulin 1.25 Ratio Test 02/04/19 07:38 Bedside Glucose 183 Home Meds Active Scripts Ondansetron (Ondansetron Odt) 4 Mg Tab.rapdis, 4 MG PO Q6H PRN for NAUSEA AND/OR VOMITING, #10 TAB Prov:JONY GONZALEZ MD 02/02/19 Ibuprofen* (Motrin*) 600 Mg Tab, 600 MG PO Q6H PRN for PAIN AND OR ELEVATED TEMP, #30 TAB Prov:JONY GONZALEZ MD 02/02/19 Docusate Sodium* (Colace*) 100 Mg Capsule, 100 MG PO TID, #30 CAP Prov:JONY GONZALEZ MD 02/02/19 Reported Medications Aspirin* (Aspirin* EC) 81 Mg Tablet.dr, 81 MG PO DAILY, TAB 02/02/19 Sitagliptin* (Januvia*) 100 Mg Tablet, 100 MG PO DAILY, #30 TAB 02/02/19 Clopidogrel Bisulfate* (Clopidogrel Bisulfate*) 75 Mg Tablet, 75 MG PO DAILY, #30 TAB 02/02/19 Atorvastatin* (Atorvastatin*) 40 Mg Tablet, 40 MG PO QHS, #30 TAB 02/02/19 Levothyroxine Sodium* (Levothyroxine Sodium*) 125 Mcg Tablet, 125 MCG PO BEFORE BREAKFAST, #30 TAB 02/02/19 Metoprolol Succinate* (Toprol XL*) 25 Mg Tab.sr.24h, 25 MG PO DAILY, #30 TAB 02/02/19 Pantoprazole* (Pantoprazole*) 40 Mg Tablet.dr, 40 MG PO AC BREAKFAST, TAB 02/02/19 Benazepril Hcl* (Benazepril Hcl*) 5 Mg Tablet, 5 MG PO DAILY, #30 TAB 02/02/19 Metformin Hcl* (Metformin Hcl*) 1,000 Mg Tablet, 1000 MG PO WITH BREAKFAST DINNE, #60 TAB 02/02/19 Escitalopram Oxalate* (Escitalopram Oxalate*) 5 Mg Tablet, 5 MG PO DAILY, #30 TAB 02/02/19 Medications Current Medications IV Flush (NS 3 ml) 3 ml PER PROTOCOL IV ; Start 02/02/19 at 20:00 Ondansetron HCl (Zofran Inj) 4 mg Q6H PRN IV NAUSEA/VOMITING; Start 02/02/19 at 20:00 Acetaminophen (Tylenol Tab) 650 mg Q6H PRN PO .PAIN 1-3 OR TEMP; Start 02/02/19 at 20:00 Docusate Sodium (Colace) 100 mg Q12H PRN PO .CONSTIPATION; Start 02/02/19 at 20:00 Bisacodyl (Dulcolax) 5 mg DAILY PRN PO .CONSTIPATION Last administered on 02/03/19 11:02; Admin Dose 5 MG; Start 02/02/19 at 20:00 Docusate Sodium (Colace) 100 mg BID PO Last administered on 02/04/19 08:44; Admin Dose 100 MG; Start 02/03/19 at 01:00 Polyethylene Glycol (Miralax) 17 gm DAILY PO Last administered on 02/04/19 08:44; Admin Dose 17 GM; Start 02/03/19 at 01:00 Pantoprazole (Protonix Tab) 40 mg DAILY@06 PO Last administered on 02/04/19 06:19; Admin Dose 40 MG; Start 02/03/19 at 01:00 Furosemide (Lasix) 40 mg DAILY IV Last administered on 02/04/19 08:44; Admin Dose 40 MG; Start 02/03/19 at 09:00 Aspirin (Halfprin) 81 mg DAILY PO Last administered on 02/04/19 08:44; Admin Dose 81 MG; Start 02/03/19 at 09:00 Atorvastatin Calcium (Lipitor) 40 mg QHS PO Last administered on 02/03/19 20:23; Admin Dose 40 MG; Start 02/03/19 at 21:00 Clopidogrel Bisulfate (plaVIX) 75 mg DAILY PO Last administered on 02/04/19 08:45; Admin Dose 75 MG; Start 02/03/19 at 09:00 Escitalopram Oxalate (Lexapro) 5 mg DAILY PO Last administered on 02/04/19 08:44; Admin Dose 5 MG; Start 02/03/19 at 09:00 Levothyroxine Sodium (Synthroid) 125 mcg BEFORE BREAKFAST PO Last administered on 02/04/19 06:19; Admin Dose 125 MCG; Start 02/03/19 at 07:00 Metoprolol Succinate (Toprol Xl) 25 mg DAILY PO Last administered on 02/04/19at 08:45; Admin Dose 25 MG; Start 02/03/19 at 09:00 Benazepril HCl (Lotensin) 5 mg BID PO Last administered on 02/04/19 08:45; Admin Dose 5 MG; Start 02/03/19 at 11:30 Diagnostic Test (Pha) (Accu-Chek) 1 ea 02 XX ; Start 02/04/19 at 02:00 Insulin Glargine (Lantus) 13 units DAILY@2000 SC Last administered on 02/03/19 20:44; Admin Dose 13 UNITS; Start 02/03/19 at 20:00 Insulin Aspart (Novolog Insulin Pen) 4 unit WITH MEALS SC Last administered on 02/04/19 07:57; Admin Dose 4 UNIT; Start 02/03/19 at 12:45 Insulin Aspart (Novolog Insulin Pen) NOVOLOG *MILD* ALGORITHM WITH MEALS BEDTIME SC Last administered on 02/04/19 07:57; Admin Dose 2 UNIT; Start 02/03/19 at 12:45 Miscellaneous Information 1 ea NOTE XX ; Start 02/03/19 at 12:30 Glucose (Glutose) 15 gm Q15M PRN PO DECREASED GLUCOSE; Start 02/03/19 at 12:30 Glucose (Glutose) 22.5 gm Q15M PRN PO DECREASED GLUCOSE; Start 02/03/19 at 12:30 Dextrose (D50w Syringe) 25 ml Q15M PRN IV DECREASED GLUCOSE; Start 02/03/19 at 12:30 Dextrose (D50w Syringe) 50 ml Q15M PRN IV DECREASED GLUCOSE; Start 02/03/19 at 12:30 Glucagon (Glucagen) 1 mg Q15M PRN IM DECREASED GLUCOSE; Start 02/03/19 at 12:30 Glucose (Glutose) 15 gm Q15M PRN BUCCAL DECREASED GLUCOSE; Start 02/03/19 at 12:30 Ciprofloxacin/ Dextrose 200 ml @ 200 mls/hr Q12 IVPB Last administered on 02/04/19at 08:45; Admin Dose 200 MLS/HR; Start 02/04/19 at 09:00 Metronidazole 100 ml @ 100 mls/hr Q8 IVPB Last administered on 02/04/19at 06: 19; Admin Dose 100 MLS/HR; Start 02/03/19 at 22:00 Assessment/Plan Hospital Course (Demo Recall) congestive heart failure probably acute secondary systolic and diastolic heart failure as well as severe anemia Anemia etiology unclear Diabetes Hypertension Possible history of coronary artery disease and PCI Depression History of gynecological cancers Severe anemia status post transfusions Recommendations: Continue with IV Lasix daily and adjust as needed Anemia workup as per internal medicine/gi Continue with HAYLIE inhibitor Diabetic management as per internal medicine Patient at this point appears to be stable from the cardiac standpoint for EGD with low to moderate risk of cardiovascular event Thank you for his referral. We will continue to follow along with you HENNY GALINDO MD [facility] HENNY GALINDO MD Feb 04, 2019 09:36
[2019-02-04] MEDS: BISACODYL (EC) 5 MG TAB PO PRN (12:53)
[2019-02-04] MEDS ORDERED: MAGNESIUM CITRATE 300 ML BTL PO ONE (17:00)
--- NOTE | 2019-02-04 18:11 | PREAC ---
Date/Time of Note Date/Time of Note DATE: 02/04/19 TIME: 18:09 Anesthesia Eval and Record Evaluation Time Pre-Procedure Interview DATE: 02/04/19 TIME: 18:09 Age 73 Sex female NPO: 8 hrs Preoperative diagnosis abdominal pain Planned procedure EGD Past Medical History Past Medical History: Includes Cardio: HTN, Dyslipidemia, CHF Endo: Diabetes Renal: CKD Surgery & Anesthesia Issues No known issue Meds Anticoagulation: Yes (PLAVIX) Beta Rosa Maria within 24 hr: Yes Reason Beta Rosa Maria not given: Pt. not on B-Rosa Maria Active Scripts Ondansetron (Ondansetron Odt) 4 Mg Tab.rapdis, 4 MG PO Q6H PRN for NAUSEA AND/OR VOMITING, #10 TAB Prov:JONY GONZALEZ MD 02/02/19 Ibuprofen* (Motrin*) 600 Mg Tab, 600 MG PO Q6H PRN for PAIN AND OR ELEVATED TEMP, #30 TAB Prov:JONY GONZALEZ MD 02/02/19 Docusate Sodium* (Colace*) 100 Mg Capsule, 100 MG PO TID, #30 CAP Prov:JONY GONZALEZ MD 02/02/19 Reported Medications Aspirin* (Aspirin* EC) 81 Mg Tablet.dr, 81 MG PO DAILY, TAB 02/02/19 Sitagliptin* (Januvia*) 100 Mg Tablet, 100 MG PO DAILY, #30 TAB 02/02/19 Clopidogrel Bisulfate* (Clopidogrel Bisulfate*) 75 Mg Tablet, 75 MG PO DAILY, #30 TAB 02/02/19 Atorvastatin* (Atorvastatin*) 40 Mg Tablet, 40 MG PO QHS, #30 TAB 02/02/19 Levothyroxine Sodium* (Levothyroxine Sodium*) 125 Mcg Tablet, 125 MCG PO BEFORE BREAKFAST, #30 TAB 02/02/19 Metoprolol Succinate* (Toprol XL*) 25 Mg Tab.sr.24h, 25 MG PO DAILY, #30 TAB 02/02/19 Pantoprazole* (Pantoprazole*) 40 Mg Tablet.dr, 40 MG PO AC BREAKFAST, TAB 02/02/19 Benazepril Hcl* (Benazepril Hcl*) 5 Mg Tablet, 5 MG PO DAILY, #30 TAB 02/02/19 Metformin Hcl* (Metformin Hcl*) 1,000 Mg Tablet, 1000 MG PO WITH BREAKFAST DINNE, #60 TAB 02/02/19 Escitalopram Oxalate* (Escitalopram Oxalate*) 5 Mg Tablet, 5 MG PO DAILY, #30 TAB 02/02/19 Current Medications IV Flush (NS 3 ml) 3 ml PER PROTOCOL IV ; Start 02/02/19 at 20:00 Ondansetron HCl (Zofran Inj) 4 mg Q6H PRN IV NAUSEA/VOMITING; Start 02/02/19 at 20:00 Acetaminophen (Tylenol Tab) 650 mg Q6H PRN PO .PAIN 1-3 OR TEMP; Start 02/02/19 at 20:00 Docusate Sodium (Colace) 100 mg Q12H PRN PO .CONSTIPATION; Start 02/02/19 at 20:00 Bisacodyl (Dulcolax) 5 mg DAILY PRN PO .CONSTIPATION Last administered on 02/04/19 12:53; Admin Dose 5 MG; Start 02/02/19 at 20:00 Docusate Sodium (Colace) 100 mg BID PO Last administered on 02/04/19 08:44; Admin Dose 100 MG; Start 02/03/19 at 01:00 Polyethylene Glycol (Miralax) 17 gm DAILY PO Last administered on 02/04/19 08:44; Admin Dose 17 GM; Start 02/03/19 at 01:00 Pantoprazole (Protonix Tab) 40 mg DAILY@06 PO Last administered on 02/04/19 06:19; Admin Dose 40 MG; Start 02/03/19 at 01:00 Furosemide (Lasix) 40 mg DAILY IV Last administered on 02/04/19 08:44; Admin Dose 40 MG; Start 02/03/19 at 09:00 Aspirin (Halfprin) 81 mg DAILY PO Last administered on 02/04/19 08:44; Admin Dose 81 MG; Start 02/03/19 at 09:00 Atorvastatin Calcium (Lipitor) 40 mg QHS PO Last administered on 02/03/19 20:23; Admin Dose 40 MG; Start 02/03/19 at 21:00 Clopidogrel Bisulfate (plaVIX) 75 mg DAILY PO Last administered on 02/04/19 08:45; Admin Dose 75 MG; Start 02/03/19 at 09:00 Escitalopram Oxalate (Lexapro) 5 mg DAILY PO Last administered on 02/04/19 08:44; Admin Dose 5 MG; Start 02/03/19 at 09:00 Levothyroxine Sodium (Synthroid) 125 mcg BEFORE BREAKFAST PO Last administered on 02/04/19 06:19; Admin Dose 125 MCG; Start 02/03/19 at 07:00 Metoprolol Succinate (Toprol Xl) 25 mg DAILY PO Last administered on 02/04/19 08:45; Admin Dose 25 MG; Start 02/03/19 at 09:00 Benazepril HCl (Lotensin) 5 mg BID PO Last administered on 02/04/19 08:45; Admin Dose 5 MG; Start 02/03/19 at 11:30 Diagnostic Test (Pha) (Accu-Chek) 1 ea 02 XX ; Start 02/04/19 at 02:00 Insulin Glargine (Lantus) 13 units DAILY@2000 SC Last administered on 02/03/19at 20:44; Admin Dose 13 UNITS; Start 02/03/19 at 20:00 Insulin Aspart (Novolog Insulin Pen) 4 unit WITH MEALS SC Last administered on 02/04/19at 17:20; Admin Dose 4 UNIT; Start 02/03/19 at 12:45 Insulin Aspart (Novolog Insulin Pen) NOVOLOG *MILD* ALGORITHM WITH MEALS BEDTIME SC Last administered on 02/04/19at 11:56; Admin Dose 4 UNIT; Start 02/03/19 at 12:45 Miscellaneous Information 1 ea NOTE XX ; Start 02/03/19 at 12:30 Glucose (Glutose) 15 gm Q15M PRN PO DECREASED GLUCOSE; Start 02/03/19 at 12:30 Glucose (Glutose) 22.5 gm Q15M PRN PO DECREASED GLUCOSE; Start 02/03/19 at 12:30 Dextrose (D50w Syringe) 25 ml Q15M PRN IV DECREASED GLUCOSE; Start 02/03/19 at 12:30 Dextrose (D50w Syringe) 50 ml Q15M PRN IV DECREASED GLUCOSE; Start 02/03/19 at 12:30 Glucagon (Glucagen) 1 mg Q15M PRN IM DECREASED GLUCOSE; Start 02/03/19 at 12:30 Glucose (Glutose) 15 gm Q15M PRN BUCCAL DECREASED GLUCOSE; Start 02/03/19 at 12:30 Ciprofloxacin/ Dextrose 200 ml @ 200 mls/hr Q12 IVPB Last administered on 02/04/19at 08:45; Admin Dose 200 MLS/HR; Start 02/04/19 at 09:00 Metronidazole 100 ml @ 100 mls/hr Q8 IVPB Last administered on 02/04/19at 13:00; Admin Dose 100 MLS/HR; Start 02/03/19 at 22:00 Meds reviewed: Yes Allergies Coded Allergies: tetracycline (Verified Allergy, Unknown, 02/02/19) Allergies Reviewed: Yes Labs/Studies Labs Reviewed: Reviewed by anesthesiologist Result Diagram: 02/03/19 0553 02/04/19 0517 Laboratory Tests 02/04/19 05:17 test: N/A Studies: ECG (SR), CXR (Cardiomegaly and findings suggestive of mild pulmonary interstitial edema.), 2D Echo (EF 45%) Pre-procedure Exam Last vitals Vital Signs Date Temp Pulse Resp B/P (MAP) Pulse Ox O2 O2 Flow FiO2 Time Delivery Rate 02/04/19 60 16:00 02/04/19 99.0 20 111/56 98 Room Air 15:13 (74) Airway: Adequate mouth opening Mallampati: Mallampati II Teeth: Normal Lung: Normal Heart: Normal ASA Physical Status ASA physical status: 3 Emergency: None Planned Anesthetic General/MAC: MAC Pre-operative Attestations Prior to commencing anesthesia and surgery, the patient was re-evaluated, there was verification of: *The patient's identity *The results of appropriate recent lab work and preoperative vital signs *The above evaluation not changing prior to induction *Anesthetic plan, risk benefits, alternative and complications discussed with patient/family; questions answered; patient/family understands, accepts and wishes to proceed. CARLOS ENRIQUE HANNAH Feb 04, 2019 18:11
[2019-02-04] MEDS: LACTULOSE 30ML CUP PO SCH ×2 (21:10→22:40)
[2019-02-04] MEDS: ATORVASTATIN 40 MG TAB PO SCH (21:12)
[2019-02-04] MEDS: traZODone 50 MG TAB PO SCH (21:12)
--- NOTE | 2019-02-04 21:25 | CONS ---
DATE OF ADMISSION: 02/04/2019 DATE OF CONSULTATION: The patient at this time has no specific complaints, although she complains of some upper abdominal d iscomfort. She was admitted with shortness of breath secondary to symptomatic anemia and in no activ e bleeding noted. PHYSICAL EXAMINATION: VITAL SIGNS: Temperature 99, blood pressure is 111/56. CARDIOVASCULAR: Normal heart sounds. RESPIRATORY: Normal breath sounds. ABDOMEN: Shows soft abdomen with no palpable masses, no tenderness. LABORATORY WORKUP: Hemoglobin went up to 9.9 yesterday after being 8 on the . Serum potassium is 4.1. CLINICAL IMPRESSION: Severe anemia, etiology not known. Rule out bleeding ulcer disease, arterioven ous malformation of the GI tract including upper GI as well as lower GI, rule out gastrointestinal ma lignancy. PLAN: Recommend upper endoscopy as well as lower endoscopy. Dictated By: MERY GONZALEZ MD NC/NTS Conf#: [id number] DID#: [id number] CC: MEAGHAN GARCIA MD;*EndCC*
[2019-02-04] MEDS: INSULIN GLARGINE [LANTus] (100 UNITS/ML) SYG SC SCH (22:03)
[2019-02-04] MEDS ORDERED: DIPHENHYDRAMINE 50 MG INJ IV ONE (22:30)
[2019-02-05] VITALS (19 sets, daily range): BP systolic 94–123; BP diastolic 46–61; PULSE 60–77; RESP 14–25
[2019-02-05] MEDS: metroNIDAZOLE 500 MG/NS (PMX) 100 ML IVPB SCH ×3 (00:17→14:28)
[2019-02-05] MEDS: LACTULOSE 30ML CUP PO SCH ×2 (00:17→02:08)
[2019-02-05] MEDS: ACCU-CHEK XX SCH (02:20)
[2019-02-05] MEDS: LEVOTHYROXINE 125 MCG TAB PO SCH (06:12)
[2019-02-05] MEDS: PANTOPRAZOLE (EC) 40 MG TAB PO SCH (06:12)
[2019-02-05] MEDS: INSULIN ASPART [NOVOLOG] 3 ML PEN SC SCH ×7 (07:55→23:02)
[2019-02-05] MEDS: DOCUSATE SODIUM 100 MG CAP PO SCH ×2 (08:32→22:32)
[2019-02-05] MEDS: ASPIRIN (EC) 81 MG TAB PO SCH (08:32)
[2019-02-05] MEDS: CIPROFLOXACIN 400MG/D5W 200 ML IVPB SCH ×2 (08:47→22:31)
[2019-02-05] MEDS: FUROSEMIDE 40 MG INJ IV SCH (08:47)
[2019-02-05] MEDS: POLYETHYLENE GLYCOL 17 GM PACKET PO SCH (09:00)
--- NOTE | 2019-02-05 09:41 | CONS ---
Consult Date/Type/Reason Admit Date/Time Feb 04, 2019 at 11:19 Initial Consult Date 02/03/19 Type of Consultation: cv Requesting Provider: MEAGHAN GARCIA Date/Time of Note DATE: 02/05/19 TIME: 09:37 Subjective Cardiology follow-up progress note Subjective: Case discussed with the staff and telemetry was reviewed. Patient remains sinus rhythm No chest pain or pressure. He still complains of abdominal discomfort which is severe + sob as well. Objective: General: Obese female in no acute distress HEENT: NC/AT. pupils are equal. round. NECK: NO JVD. no stridor. CV: RRR. systolic murmur; no gallop or rubs. PULM: no wheezing or rhonchi. GI: SOFT, + tenderness diffuse , no rebound or guarding Extremity: trace B/L LE edema. no clubbing. neuro: awake and alert, OX3. Psych: calm and pleasant rectal: deferred : normal EKG showed normal sinus rhythm. Poor R wave progression Echocardiogram was personally reviewed which shows: Normal left ventricular cavity size. Mild concentric left ventricular hypertrophy. Mild left ventricular systolic dysfunction. Ejection fraction is visually estimated at 45 %. Abnormal Diastolic Function. Multiple segmental wall motion abnormalities. Normal appearance of the mitral valve. Mild mitral annular calcification. Trace mitral regurgitation. No significant aortic stenosis or insufficiency. Aortic cusps appear mildly calcified. Normal appearance of the tricuspid valve. Estimated peak PA systolic pressure 43 mmHg. There is mild tricuspid regurgitation. Normal size and normal respiratory collapse consistent with normal right atrial pressure. Objective Vitals Vital Signs Date Temp Pulse Resp B/P (MAP) Pulse Ox O2 O2 Flow FiO2 Time Delivery Rate 02/05/19 66 08:00 02/05/19 98.2 19 117/57 93 07:20 (77) 02/04/19 Room Air 15:13 Intake and Output 02/04/19 02/04/19 02/05/19 1515:00 23:00 07:00 IntakeIntake Total 1050 ml 960 ml 900 ml BalanceBalance 1050 ml 960 ml 900 ml Results/Medications Result Diagram: 02/03/19 0553 02/05/19 0529 Results 24 hrs Laboratory Tests Test 02/04/19 11:40 02/04/19 17:15 02/04/19 21:22 02/05/19 02:16 Bedside Glucose 280 H 117 185 137 Test 02/05/19 02:30 02/05/19 05:29 02/05/19 07:57 Stool Occult Blood NEGATIVE Sodium Level 143 Potassium Level 4.2 Chloride Level 107 Carbon Dioxide Level 28 Anion Gap 8 Blood Urea Nitrogen 13 Creatinine 1.25 H Est Glomerular Filtrat Rate mL/min Glucose Level 177 Calcium Level 9.8 Bedside Glucose 157 Home Meds Active Scripts Ondansetron (Ondansetron Odt) 4 Mg Tab.rapdis, 4 MG PO Q6H PRN for NAUSEA AND/OR VOMITING, #10 TAB Prov:JONY GONZALEZ MD 02/02/19 Ibuprofen* (Motrin*) 600 Mg Tab, 600 MG PO Q6H PRN for PAIN AND OR ELEVATED TEMP, #30 TAB Prov:JONY GONZALEZ MD 02/02/19 Docusate Sodium* (Colace*) 100 Mg Capsule, 100 MG PO TID, #30 CAP Prov:JONY GONZALEZ MD 02/02/19 Reported Medications Aspirin* (Aspirin* EC) 81 Mg Tablet.dr, 81 MG PO DAILY, TAB 02/02/19 Sitagliptin* (Januvia*) 100 Mg Tablet, 100 MG PO DAILY, #30 TAB 02/02/19 Clopidogrel Bisulfate* (Clopidogrel Bisulfate*) 75 Mg Tablet, 75 MG PO DAILY, #30 TAB 02/02/19 Atorvastatin* (Atorvastatin*) 40 Mg Tablet, 40 MG PO QHS, #30 TAB 02/02/19 Levothyroxine Sodium* (Levothyroxine Sodium*) 125 Mcg Tablet, 125 MCG PO BEFORE BREAKFAST, #30 TAB 02/02/19 Metoprolol Succinate* (Toprol XL*) 25 Mg Tab.sr.24h, 25 MG PO DAILY, #30 TAB 02/02/19 Pantoprazole* (Pantoprazole*) 40 Mg Tablet.dr, 40 MG PO AC BREAKFAST, TAB 02/02/19 Benazepril Hcl* (Benazepril Hcl*) 5 Mg Tablet, 5 MG PO DAILY, #30 TAB 02/02/19 Metformin Hcl* (Metformin Hcl*) 1,000 Mg Tablet, 1000 MG PO WITH BREAKFAST DINNE, #60 TAB 02/02/19 Escitalopram Oxalate* (Escitalopram Oxalate*) 5 Mg Tablet, 5 MG PO DAILY, #30 TAB 02/02/19 Medications Current Medications IV Flush (NS 3 ml) 3 ml PER PROTOCOL IV ; Start 02/02/19 at 20:00 Ondansetron HCl (Zofran Inj) 4 mg Q6H PRN IV NAUSEA/VOMITING; Start 02/02/19 at 20:00 Acetaminophen (Tylenol Tab) 650 mg Q6H PRN PO .PAIN 1-3 OR TEMP; Start 02/02/19 at 20:00 Docusate Sodium (Colace) 100 mg Q12H PRN PO .CONSTIPATION; Start 02/02/19 at 20:00 Bisacodyl (Dulcolax) 5 mg DAILY PRN PO .CONSTIPATION Last administered on 02/04/19 12:53; Admin Dose 5 MG; Start 02/02/19 at 20:00 Docusate Sodium (Colace) 100 mg BID PO Last administered on 02/04/19 21:12; Admin Dose 100 MG; Start 02/03/19 at 01:00 Polyethylene Glycol (Miralax) 17 gm DAILY PO Last administered on 02/04/19 08:44; Admin Dose 17 GM; Start 02/03/19 at 01:00 Pantoprazole (Protonix Tab) 40 mg DAILY@06 PO Last administered on 02/05/19 06:12; Admin Dose 40 MG; Start 02/03/19 at 01:00 Furosemide (Lasix) 40 mg DAILY IV Last administered on 02/05/19 08:47; Admin Dose 40 MG; Start 02/03/19 at 09:00 Aspirin (Halfprin) 81 mg DAILY PO Last administered on 02/04/19 08:44; Admin Dose 81 MG; Start 02/03/19 at 09:00 Atorvastatin Calcium (Lipitor) 40 mg QHS PO Last administered on 02/04/19 21:1 2; Admin Dose 40 MG; Start 02/03/19 at 21:00 Clopidogrel Bisulfate (plaVIX) 75 mg DAILY PO Last administered on 02/04/19 08:45; Admin Dose 75 MG; Start 02/03/19 at 09:00 Escitalopram Oxalate (Lexapro) 5 mg DAILY PO Last administered on 02/04/19 08:44; Admin Dose 5 MG; Start 02/03/19 at 09:00 Levothyroxine Sodium (Synthroid) 125 mcg BEFORE BREAKFAST PO Last administered on 02/05/19 06:12; Admin Dose 125 MCG; Start 02/03/19 at 07:00 Metoprolol Succinate (Toprol Xl) 25 mg DAILY PO Last administered on 02/04/19 08:45; Admin Dose 25 MG; Start 02/03/19 at 09:00 Benazepril HCl (Lotensin) 5 mg BID PO Last administered on 02/04/19 21:11; Admin Dose 5 MG; Start 02/03/19 at 11:30 Diagnostic Test (Pha) (Accu-Chek) 1 ea 02 XX Last administered on 02/05/19at 02:20; Admin Dose 1 EA; Start 02/04/19 at 02:00 Insulin Glargine (Lantus) 13 units DAILY@2000 SC Last administered on 02/04/19 22:03; Admin Dose 13 UNITS; Start 02/03/19 at 20:00 Insulin Aspart (Novolog Insulin Pen) 4 unit WITH MEALS SC Last administered on 02/04/19 17:20; Admin Dose 4 UNIT; Start 02/03/19 at 12:45 Insulin Aspart (Novolog Insulin Pen) NOVOLOG *MILD* ALGORITHM WITH MEALS BEDTIME SC Last administered on 02/04/19 22:04; Admin Dose 1 UNIT; Start 02/03/19 at 12:45 Miscellaneous Information 1 ea NOTE XX ; Start 02/03/19 at 12:30 Glucose (Glutose) 15 gm Q15M PRN PO DECREASED GLUCOSE; Start 02/03/19 at 12:30 Glucose (Glutose) 22.5 gm Q15M PRN PO DECREASED GLUCOSE; Start 02/03/19 at 12:30 Dextrose (D50w Syringe) 25 ml Q15M PRN IV DECREASED GLUCOSE; Start 02/03/19 at 12:30 Dextrose (D50w Syringe) 50 ml Q15M PRN IV DECREASED GLUCOSE; Start 02/03/19 at 12:30 Glucagon (Glucagen) 1 mg Q15M PRN IM DECREASED GLUCOSE; Start 02/03/19 at 12:30 Glucose (Glutose) 15 gm Q15M PRN BUCCAL DECREASED GLUCOSE; Start 02/03/19 at 12:30 Ciprofloxacin/ Dextrose 200 ml @ 200 mls/hr Q12 IVPB Last administered on 02/05/19at 08:47; Admin Dose 200 MLS/HR; Start 02/04/19 at 09:00 Metronidazole 100 ml @ 100 mls/hr Q8 IVPB Last administered on 02/05/19at 06:12; Admin Dose 100 MLS/HR; Start 02/03/19 at 22:00 Trazodone HCl (Desyrel) 25 mg HS PO Last administered on 02/04/19at 21:12; Admin Dose 25 MG; Start 02/04/19 at 21:00 Assessment/Plan Hospital Course (Demo Recall) congestive heart failure probably acute secondary systolic and diastolic heart failure as well as severe anemia Anemia etiology unclear Diabetes Hypertension Possible history of coronary artery disease and PCI Depression History of gynecological cancers Severe anemia status post transfusions Recommendations: Continue with IV Lasix daily and adjust as needed Anemia workup as per internal medicine/GI. Continue with HAYLIE inhibitor Diabetic management as per internal medicine Thank you for his referral. We will continue to follow along with you HENNY GALINDO MD [facility] HENNY GALINDO MD Feb 05, 2019 09:41
--- NOTE | 2019-02-05 10:08 | EN ---
Date/Time of Note Date/Time of Note DATE: 02/05/19 TIME: 10:08 NATHEN MONTERO Feb 05, 2019 10:08
[2019-02-05] MEDS ORDERED: LIDOCAINE 100 MG SYRINGE ONE (11:21)
[2019-02-05] MEDS ORDERED: PROPOFOL 20 ML ONE (11:21)
[2019-02-05] MEDS ORDERED: ETOMIDATE 20 MG INJ ONE ×2 (11:39→11:41)
[2019-02-05] MEDS ORDERED: VASOPRESSIN 20 UNITS INJ ONE (11:45)
--- NOTE | 2019-02-05 12:16 | PAC ---
Date/Time of Note Date/Time of Note DATE: 02/05/19 TIME: 12:16 Post-Anesthesia Notes Post-Anesthesia Note Last documented vital signs Vital Signs Date Temp Pulse Resp B/P (MAP) Pulse Ox O2 O2 Flow FiO2 Time Delivery Rate 02/05/19 98.2 77 19 101/51 96 11:05 (68) 02/04/19 Room Air 15:13 Activity: WNL Respiratory function: WNL Cardiovascular function: WNL Mental status: Baseline Pain reasonably controlled: Yes Hydration appropriate: Yes Nausea/Vomiting absent: Yes CARLOS ENRIQUE HANNAH Feb 05, 2019 12:16
--- NOTE | 2019-02-05 12:37 | PN ---
Date/Time of Note Date/Time of Note DATE: 02/05/19 TIME: 12:27 Assessment/Plan VTE Prophylaxis Risk score (from Nsg)>0 risk: 2 Pharmacological prophylaxis: heparin Lines/Catheters IV Catheter Type (from Nrsg): Saline Lock Urinary Cath still in place: No Assessment/Plan Hospital Course S: no new complaints, NPO for procedure today O: General: Anxious, A&O x3, answering questions appropriately HEENT: NC/ AT. PERRL. EOM intact Neck: supple CVS: S1, S2, RRR. no murmurs. no pain on chest wall palpation Lungs: CTA b/l. no wheezing or rhonchi, diminished Abd: soft, + BS Ext: moving all extremities skin: no rashes CT 1. Fluid filled nondilated distal small bowel loops, nonspecific finding which could be seen in the setting of enteritis. 2. Mild cardiomegaly and findings suggestive of mild bibasilar pulmonary interstitial edema. 3. Trace left pleural effusion and mild left basilar atelectasis. 4. Small right basilar lung nodules, indeterminate. If the patient is low risk, consider option follow-up noncontrast chest CT at 12 months. assessment and plan: 73-year-old female with coronary disease, hypertension, and diabetes who presents with abdominal pain. She also has shortness of breath with minimal exertion. She said that her abdominal pain started after an endoscopy in July. She has constipation and no bowel movements for 1 week. She is currently managed as follows: 1. Acute CHF -improved on diuresis -Creatinine trending up, will switch lasix to Po 2. severe symptomatic anemia improved post 2 units of PRBC -egd / colon today, appreciate GI input 3. abd pain 2/2 enteritis ? versus other process? -improved on abx, endoscopy today 4. multiple lung nodules: -stable on CT , d. Interval follow-up in 1 year could be obtained to ensure stability / resolution if there are any risk factors. 5.Chronic kidney injury: -Creatinine seems to be at baseline -Continue to hold HAYLIE inhibitor for now . avoid nephrotoxins as much as possible -ongoing diuresis re : #2, monitor indices closely 6. hypertension: -ACEi on hold, continue BB 7. hyperlipidemia: Continue statin 8. hypothyroidism, continue levothyroxine, 9. Hx of coronary artery disease? -Patient continued on home Plavix, may need GI review to clear for continued usage 10 diabetes mellitus -a1C 7.5 -continue and titrate regimen as indicated 11. history of uterine cancer: Status post hysterectomy. - CT of the abdomen pelvis did show pulmonary nodules, f/u chest CT dispo: -continue diuresis, f/u endscopy findings -d/c planning dependent on clinical state post endoscopy and findings. Result Diagram: 02/03/19 0553 02/05/19 0529 Results 24hrs Laboratory Tests Test 02/04/19 17:15 02/04/19 21:22 02/05/19 02:16 02/05/19 02:30 Bedside Glucose 117 185 137 Stool Occult Blood NEGATIVE Test 02/05/19 05:29 02/05/19 07:57 Sodium Level 143 Potassium Level 4.2 Chloride Level 107 Carbon Dioxide Level 28 Anion Gap 8 Blood Urea Nitrogen 13 Creatinine 1.25 H Est Glomerular Filtrat Rate mL/min Glucose Level 177 Calcium Level 9.8 Bedside Glucose 157 Exam/Review of Systems Exam Vitals Vital Signs Date Temp Pulse Resp B/P (MAP) Pulse Ox O2 O2 Flow FiO2 Time Delivery Rate 02/05/19 74 12:00 02/05/19 98.2 19 101/51 96 11:05 (68) 02/04/19 Room Air 15:13 Intake and Output 02/04/19 02/04/19 02/05/19 1515:00 23:00 07:00 IntakeIntake Total 1050 ml 960 ml 900 ml BalanceBalance 1050 ml 960 ml 900 ml Results Results 24hrs Laboratory Tests Test 02/04/19 17:15 02/04/19 21:22 02/05/19 02:16 02/05/19 02:30 Bedside Glucose 117 185 137 Stool Occult Blood NEGATIVE Test 02/05/19 05:29 02/05/19 07:57 Sodium Level 143 Potassium Level 4.2 Chloride Level 107 Carbon Dioxide Level 28 Anion Gap 8 Blood Urea Nitrogen 13 Creatinine 1.25 H Est Glomerular Filtrat Rate mL/min Glucose Level 177 Calcium Level 9.8 Bedside Glucose 157 Medications Medication Current Medications IV Flush (NS 3 ml) 3 ml PER PROTOCOL IV ; Start 02/02/19 at 20:00 Ondansetron HCl (Zofran Inj) 4 mg Q6H PRN IV NAUSEA/VOMITING; Start 02/02/19 at 20:00 Acetaminophen (Tylenol Tab) 650 mg Q6H PRN PO .PAIN 1-3 OR TEMP; Start 02/02/19 at 20:00 Docusate Sodium (Colace) 100 mg Q12H PRN PO .CONSTIPATION; Start 02/02/19 at 20:00 Bisacodyl (Dulcolax) 5 mg DAILY PRN PO .CONSTIPATION Last administered on 02/04/19 12:53; Admin Dose 5 MG; Start 02/02/19 at 20:00 Docusate Sodium (Colace) 100 mg BID PO Last administered on 02/04/19 21:12; Admin Dose 100 MG; Start 02/03/19 at 01:00 Polyethylene Glycol (Miralax) 17 gm DAILY PO Last administered on 02/04/19 08:44; Admin Dose 17 GM; Start 02/03/19 at 01:00 Pantoprazole (Protonix Tab) 40 mg DAILY@06 PO Last administered on 02/05/19 06:12; Admin Dose 40 MG; Start 02/03/19 at 01:00 Furosemide (Lasix) 40 mg DAILY IV Last administered on 02/05/19 08:47; Admin Dose 40 MG; Start 02/03/19 at 09:00 Aspirin (Halfprin) 81 mg DAILY PO Last administered on 02/04/19 08:44; Admin Dose 81 MG; Start 02/03/19 at 09:00 Atorvastatin Calcium (Lipitor) 40 mg QHS PO Last administered on 02/04/19 21:12; Admin Dose 40 MG; Start 02/03/19 at 21:00 Clopidogrel Bisulfate (plaVIX) 75 mg DAILY PO Last administered on 02/04/19 08:45; Admin Dose 75 MG; Start 02/03/19 at 09:00 Escitalopram Oxalate (Lexapro) 5 mg DAILY PO Last administered on 02/04/19 08:44; Admin Dose 5 MG; Start 02/03/19 at 09:00 Levothyroxine Sodium (Synthroid) 125 mcg BEFORE BREAKFAST PO Last administered on 02/05/19 06:12; Admin Dose 125 MCG; Start 02/03/19 at 07:00 Metoprolol Succinate (Toprol Xl) 25 mg DAILY PO Last administered on 02/04/19 08:45; Admin Dose 25 MG; Start 02/03/19 at 09:00 Benazepril HCl (Lotensin) 5 mg BID PO Last administered on 02/04/19at 21:11; Admin Dose 5 MG; Start 02/03/19 at 11:30 Diagnostic Test (Pha) (Accu-Chek) 1 ea 02 XX Last administered on 02/05/19at 02:20; Admin Dose 1 EA; Start 02/04/19 at 02:00 Insulin Glargine (Lantus) 13 units DAILY@2000 SC Last administered on 02/04/19at 22:03; Admin Dose 13 UNITS; Start 02/03/19 at 20:00 Insulin Aspart (Novolog Insulin Pen) 4 unit WITH MEALS SC Last administered on 02/04/19at 17:20; Admin Dose 4 UNIT; Start 02/03/19 at 12:45 Insulin Aspart (Novolog Insulin Pen) NOVOLOG *MILD* ALGORITHM WITH MEALS BEDTIME SC Last administered on 02/04/19at 22:04; Admin Dose 1 UNIT; Start 02/03/19 at 12:45 Miscellaneous Information 1 ea NOTE XX ; Start 02/03/19 at 12:30 Glucose (Glutose) 15 gm Q15M PRN PO DECREASED GLUCOSE; Start 02/03/19 at 12:30 Glucose (Glutose) 22.5 gm Q15M PRN PO DECREASED GLUCOSE; Start 02/03/19 at 12:30 Dextrose (D50w Syringe) 25 ml Q15M PRN IV DECREASED GLUCOSE; Start 02/03/19 at 12:30 Dextrose (D50w Syringe) 50 ml Q15M PRN IV DECREASED GLUCOSE; Start 02/03/19 at 12:30 Glucagon (Glucagen) 1 mg Q15M PRN IM DECREASED GLUCOSE; Start 02/03/19 at 12:30 Glucose (Glutose) 15 gm Q15M PRN BUCCAL DECREASED GLUCOSE; Start 02/03/19 at 12:30 Ciprofloxacin/ Dextrose 200 ml @ 200 mls/hr Q12 IVPB Last administered on 02/05/19at 08:47; Admin Dose 200 MLS/HR; Start 02/04/19 at 09:00 Metronidazole 100 ml @ 100 mls/hr Q8 IVPB Last administered on 02/05/19at 06:12; Admin Dose 100 MLS/HR; Start 02/03/19 at 22:00 Trazodone HCl (Desyrel) 25 mg HS PO Last administered on 02/04/19at 21:12; Admin Dose 25 MG; Start 02/04/19 at 21:00 NATHEN MONTERO Feb 05, 2019 12:37
[2019-02-05] MEDS: ACETAMINOPHEN 325 MG TAB PO PRN ×2 (13:34→21:24)
[2019-02-05] MEDS: CLOPIDOGREL 75 MG TAB PO SCH (13:35)
[2019-02-05] MEDS: BENAZEPRIL 5 MG TAB PO SCH ×2 (13:35→22:32)
[2019-02-05] MEDS: ESCITALOPRAM 10 MG TAB PO SCH (13:35)
[2019-02-05] MEDS: METOPROLOL (XL) 25 MG TAB PO SCH (13:37)
[2019-02-05] MEDS: ATORVASTATIN 40 MG TAB PO SCH (22:32)
[2019-02-05] MEDS: traZODone 50 MG TAB PO SCH (22:33)
[2019-02-05] MEDS: HEPARIN 5,000 UNIT/1 ML VIAL SC SCH (23:03)
[2019-02-05] MEDS: INSULIN GLARGINE [LANTus] (100 UNITS/ML) SYG SC SCH (23:10)
[2019-02-06] MEDS: metroNIDAZOLE 500 MG/NS (PMX) 100 ML IVPB SCH ×5 (01:32→23:30)
[2019-02-06 01:49] VITALS: BP 111/55; PULSE 66; RESP 18
[2019-02-06] MEDS: SUCRALFATE 1 GM TAB PO PRN ×3 (02:21→16:22)
[2019-02-06] MEDS: CEPASTAT LOZENGE MT PRN ×2 (02:21→16:22)
[2019-02-06] MEDS: morphine 2 MG INJ IV PRN (02:22)
[2019-02-06] MEDS: ACCU-CHEK XX SCH (02:30)
[2019-02-06] MEDS: PANTOPRAZOLE (EC) 40 MG TAB PO SCH (06:07)
[2019-02-06] MEDS: LEVOTHYROXINE 125 MCG TAB PO SCH (06:07)
[2019-02-06] MEDS: INSULIN ASPART [NOVOLOG] 3 ML PEN SC SCH ×7 (07:39→21:39)
[2019-02-06 08:02] VITALS: BP 97/50; PULSE 59; RESP 18
[2019-02-06] MEDS: CLOPIDOGREL 75 MG TAB PO SCH (08:56)
[2019-02-06] MEDS: CIPROFLOXACIN 400MG/D5W 200 ML IVPB SCH ×3 (08:56→22:23)
[2019-02-06] MEDS: POLYETHYLENE GLYCOL 17 GM PACKET PO SCH (08:56)
[2019-02-06] MEDS: ASPIRIN (EC) 81 MG TAB PO SCH (08:57)
[2019-02-06] MEDS: FUROSEMIDE 40 MG TAB PO SCH (08:57)
[2019-02-06] MEDS: ESCITALOPRAM 10 MG TAB PO SCH (08:57)
[2019-02-06] MEDS: DOCUSATE SODIUM 100 MG CAP PO SCH ×2 (08:57→21:00)
[2019-02-06] MEDS: BENAZEPRIL 5 MG TAB PO SCH ×2 (09:00→21:28)
[2019-02-06] MEDS: HEPARIN 5,000 UNIT/1 ML VIAL SC SCH ×2 (09:04→21:40)
[2019-02-06] MEDS ORDERED: FURO40TA4 PO (10:25)
--- NOTE | 2019-02-06 10:26 | PDOCDIS ---
Discharge Instructions CONDITION [id number] Patient Condition: [id number] Good HOME CARE INSTRUCTIONS: [id number] Diet Instructions: [id number] Reduced Calorie ACTIVITY: [id number] Activity Restrictions: [id number] No Restrictions FOLLOW UP/APPOINTMENTS Follow-up Plan FOLLOW UP WITH YOUR PCP IN 1-2 WEEKS KAREN BUTLER Feb 06, 2019 10:26
[2019-02-06 11:04] VITALS: BP 114/52; PULSE 70; RESP 19
[2019-02-06] MEDS: METOPROLOL (XL) 25 MG TAB PO SCH (12:03)
--- NOTE | 2019-02-06 12:29 | DS ---
Date/Time of Note Date/Time of Note DATE: 02/06/19 TIME: 12: Discharge Summary Admission/Discharge Info Admit Date/Time Feb 04, 2019 at 11:19 Discharge Date/Time February 06, 2019 Discharge Diagnosis 1. Acute CHF -improved on diuresis, DC with Lasix p.o. -Echo shows an EF of 45% 2. severe symptomatic anemia improved post 2 units of PRBC -egd / colo shows only hemorrhoids and chronic gastritis, continue home PPI 3. Abdominal pain likely secondary to chronic gastritis -Continue PPI 4. multiple lung nodules: -stable on CT , d. Interval follow-up in 1 year could be obtained to ensure stability / resolution if there are any risk factors. 5.Chronic kidney injury: -Creatinine seems to be at baseline 6. hypertension: -Continue home meds 7. hyperlipidemia: Continue statin 8. hypothyroidism, continue levothyroxine 9. Hx of coronary artery disease status post PCI -Continue home Plavix 10 diabetes mellitus -a1C 7.5 -continue home metformin 11. history of uterine cancer: Status post hysterectomy. Patient Condition: Good Hospital Course Patient is a 73-year-old female with a history of coronary disease status post PCI, CKD, hypertension, diabetes, uterine cancer who presented with shortness of breath as well as sore throat and malaise. Patient was found to have pulmonary edema, echo showed EF of 45%, patient's shortness of breath did improve with diuresis patient was seen by cardiology. Patient was also complaining of abdominal pain and was anemic requiring 2 units of packed red blood cells, patient was seen by GI and EGD and colonoscopy were done which showed only hemorrhoids and chronic gastritis. Patient was stable for DC, on the day of discharge patient's vitals, labs and physical exam are stable. Home Meds Active Scripts Furosemide* (Furosemide*) 40 Mg Tablet, 40 MG PO DAILY, #60 TAB Prov:KAREN BUTLER 02/06/19 Ondansetron (Ondansetron Odt) 4 Mg Tab.rapdis, 4 MG PO Q6H PRN for NAUSEA AND/OR VOMITING, #10 TAB Prov:JONY GONZALEZ MD 02/02/19 Ibuprofen* (Motrin*) 600 Mg Tab, 600 MG PO Q6H PRN for PAIN AND OR ELEVATED TEM P, #30 TAB Prov:JONY GONZALEZ MD 02/02/19 Docusate Sodium* (Colace*) 100 Mg Capsule, 100 MG PO TID, #30 CAP Prov:JONY GONZALEZ MD 02/02/19 Reported Medications Aspirin* (Aspirin* EC) 81 Mg Tablet.dr, 81 MG PO DAILY, TAB 02/02/19 Sitagliptin* (Januvia*) 100 Mg Tablet, 100 MG PO DAILY, #30 TAB 02/02/19 Clopidogrel Bisulfate* (Clopidogrel Bisulfate*) 75 Mg Tablet, 75 MG PO DAILY, #30 TAB 02/02/19 Atorvastatin* (Atorvastatin*) 40 Mg Tablet, 40 MG PO QHS, #30 TAB 02/02/19 Levothyroxine Sodium* (Levothyroxine Sodium*) 125 Mcg Tablet, 125 MCG PO BEFORE BREAKFAST, #30 TAB 02/02/19 Metoprolol Succinate* (Toprol XL*) 25 Mg Tab.sr.24h, 25 MG PO DAILY, #30 TAB 02/02/19 Pantoprazole* (Pantoprazole*) 40 Mg Tablet.dr, 40 MG PO AC BREAKFAST, TAB 02/02/19 Benazepril Hcl* (Benazepril Hcl*) 5 Mg Tablet, 5 MG PO DAILY, #30 TAB 02/02/19 Metformin Hcl* (Metformin Hcl*) 1,000 Mg Tablet, 1000 MG PO WITH BREAKFAST DINNE, #60 TAB 02/02/19 Escitalopram Oxalate* (Escitalopram Oxalate*) 5 Mg Tablet, 5 MG PO DAILY, #30 TAB 02/02/19 Follow-up Plan FOLLOW UP WITH YOUR PCP IN 1-2 WEEKS Primary Care Provider Not On Staff Doctor Time spent on discharge: > 30 minutes KAREN BUTLER Feb 06, 2019 12:29
--- NOTE | 2019-02-06 15:27 | CONS ---
Consult Date/Type/Reason Admit Date/Time Feb 04, 2019 at 11:19 Initial Consult Date 02/03/19 Type of Consultation: cv Requesting Provider: MEAGHAN GARCIA Date/Time of Note DATE: 02/06/19 TIME: 15:25 Subjective Cardiology follow-up progress note Subjective: Case discussed with the staff and telemetry was reviewed. Patient remains sinus rhythm No chest pain or pressure. He still complains of abdominal discomfort Objective: General: Obese female in no acute distress HEENT: NC/AT. pupils are equal. round. NECK: NO JVD. no stridor. CV: RRR. systolic murmur; no gallop or rubs. PULM: no wheezing or rhonchi. GI: SOFT, + tenderness diffuse , no rebound or guarding Extremity: trace B/L LE edema. no clubbing. neuro: awake and alert, OX3. Psych: calm and pleasant rectal: deferred : normal EKG showed normal sinus rhythm. Poor R wave progression Echocardiogram was personally reviewed which shows: Normal left ventricular cavity size. Mild concentric left ventricular hypertrophy. Mild left ventricular systolic dysfunction. Ejection fraction is visually estimated at 45 %. Abnormal Diastolic Function. Multiple segmental wall motion abnormalities. Normal appearance of the mitral valve. Mild mitral annular calcification. Trace mitral regurgitation. No significant aortic stenosis or insufficiency. Aortic cusps appear mildly calcified. Normal appearance of the tricuspid valve. Estimated peak PA systolic pressure 43 mmHg. There is mild tricuspid regurgitation. Normal size and normal respiratory collapse consistent with normal right atrial pressure. Objective Vitals Vital Signs Date Temp Pulse Resp B/P (MAP) Pulse Ox O2 O2 Flow FiO2 Time Delivery Rate 02/06/19 98.2 70 19 114/52 98 11:04 (72) 02/05/19 Room Air 13:25 Intake and Output 02/05/19 02/05/19 02/06/19 1414:59 22:59 06:59 IntakeIntake Total 100 ml 600 ml 780 ml BalanceBalance 100 ml 600 ml 780 ml Results/Medications Result Diagram: 02/06/19 0543 02/06/19 0543 Results 24 hrs Laboratory Tests Test 02/05/19 17:20 02/05/19 22:56 02/06/19 02:30 02/06/19 05:43 Bedside Glucose 186 181 209 White Blood Count 8.1 Red Blood Count 4.39 Hemoglobin 10.7 L Hematocrit 35.6 L Mean Corpuscular 81.1 L Volume Mean Corpuscular 24.4 L Hemoglobin Mean Corpuscular 30.1 L Hemoglobin Concen t Red Cell 16.1 H Distribution Width Platelet Count 253 Mean Platelet 10.0 Volume Immature 1.500 H Granulocytes % Neutrophils % 51.1 Lymphocytes % 34.5 Monocytes % 11.4 H Eosinophils % 0.5 Basophils % 1.0 Nucleated Red 0.0 Blood Cells % Immature 0.120 H Granulocytes # Neutrophils # 4.1 Lymphocytes # 2.8 Monocytes # 0.9 Eosinophils # 0.0 Basophils # 0.1 Nucleated Red 0.0 Blood Cells # Sodium Level 141 Potassium Level 4.1 Chloride Level 104 Carbon Dioxide 25 Level Anion Gap 12 Blood Urea 14 Nitrogen Creatinine 1.06 H Est Glomerular Filtrat Rate mL/min Glucose Level 188 Calcium Level 9.1 Magnesium Level 1.8 Total Bilirubin 0.3 Direct Bilirubin 0.00 Indirect 0.3 Bilirubin Aspartate Amino 14 L Transf (AST/SGOT) Alanine 15 Aminotransferase (ALT/SGPT) Alkaline 80 Phosphatase B-Type 458 H Natriuretic Peptide Total Protein 6.4 Albumin 3.5 Globulin 2.90 Albumin/Globulin 1.20 Ratio Test 02/06/19 06:06 02/06/19 07:31 02/06/19 12:45 Lab Scanned BLOOD TRANSFUSIO Report N Bedside Glucose 188 282 H Home Meds Active Scripts Furosemide* (Furosemide*) 40 Mg Tablet, 40 MG PO DAILY, #60 TAB Prov:KAREN BUTLER 02/06/19 Ondansetron (Ondansetron Odt) 4 Mg Tab.rapdis, 4 MG PO Q6H PRN for NAUSEA AND/OR VOMITING, #10 TAB Prov:JONY GONZALEZ MD 02/02/19 Ibuprofen* (Motrin*) 600 Mg Tab, 600 MG PO Q6H PRN for PAIN AND OR ELEVATED TEMP, #30 TAB Prov:JONY GONZALEZ MD 02/02/19 Docusate Sodium* (Colace*) 100 Mg Capsule, 100 MG PO TID, #30 CAP Prov:JONY GONZALEZ MD 02/02/19 Reported Medications Aspirin* (Aspirin* EC) 81 Mg Tablet.dr, 81 MG PO DAILY, TAB 02/02/19 Sitagliptin* (Januvia*) 100 Mg Tablet, 100 MG PO DAILY, #30 TAB 02/02/19 Clopidogrel Bisulfate* (Clopidogrel Bisulfate*) 75 Mg Tablet, 75 MG PO DAILY, #30 TAB 02/02/19 Atorvastatin* (Atorvastatin*) 40 Mg Tablet, 40 MG PO QHS, #30 TAB 02/02/19 Levothyroxine Sodium* (Levothyroxine Sodium*) 125 Mcg Tablet, 125 MCG PO BEFORE BREAKFAST, #30 TAB 02/02/19 Metoprolol Succinate* (Toprol XL*) 25 Mg Tab.sr.24h, 25 MG PO DAILY, #30 TAB 02/02/19 Pantoprazole* (Pantoprazole*) 40 Mg Tablet.dr, 40 MG PO AC BREAKFAST, TAB 02/02/19 Benazepril Hcl* (Benazepril Hcl*) 5 Mg Tablet, 5 MG PO DAILY, #30 TAB 02/02/19 Metformin Hcl* (Metformin Hcl*) 1,000 Mg Tablet, 1000 MG PO WITH BREAKFAST DINNE, #60 TAB 02/02/19 Escitalopram Oxalate* (Escitalopram Oxalate*) 5 Mg Tablet, 5 MG PO DAILY, #30 TAB 02/02/19 Medications Current Medications IV Flush (NS 3 ml) 3 ml PER PROTOCOL IV ; Start 02/02/19 at 20:00 Ondansetron HCl (Zofran Inj) 4 mg Q6H PRN IV NAUSEA/VOMITING; Start 02/02/19 at 20:00 Acetaminophen (Tylenol Tab) 650 mg Q6H PRN PO .PAIN 1-3 OR TEMP Last administered on 02/05/19at 21:24; Admin Dose 650 MG; Start 02/02/19 at 20:00 Docusate Sodium (Colace) 100 mg Q12H PRN PO .CONSTIPATION; Start 02/02/19 at 20:00 Bisacodyl (Dulcolax) 5 mg DAILY PRN PO .CONSTIPATION Last administered on 02/04/19at 12:53; Admin Dose 5 MG; Start 02/02/19 at 20:00 Docusate Sodium (Colace) 100 mg BID PO Last administered on 02/06/19at 08:57; Admin Dose 100 MG; Start 02/03/19 at 01:00 Polyethylene Glycol (Miralax) 17 gm DAILY PO Last administered on 02/06/19at 08:56; Admin Dose 17 GM; Start 02/03/19 at 01:00 Pantoprazole (Protonix Tab) 40 mg DAILY@06 PO Last administered on 02/06/19 06:07; Admin Dose 40 MG; Start 02/03/19 at 01:00 Aspirin (Halfprin) 81 mg DAILY PO Last administered on 02/06/19 08:57; Admin Dose 81 MG; Start 02/03/19 at 09:00 Atorvastatin Calcium (Lipitor) 40 mg QHS PO Last administered on 02/05/19 22:32; Admin Dose 40 MG; Start 02/03/19 at 21:00 Clopidogrel Bisulfate (plaVIX) 75 mg DAILY PO Last administered on 02/06/19 08:56; Admin Dose 75 MG; Start 02/03/19 at 09:00 Escitalopram Oxalate (Lexapro) 5 mg DAILY PO Last administered on 02/06/19 08:57; Admin Dose 5 MG; Start 02/03/19 at 09:00 Levothyroxine Sodium (Synthroid) 125 mcg BEFORE BREAKFAST PO Last administered on 02/06/19 06:07; Admin Dose 125 MCG; Start 02/03/19 at 07:00 Metoprolol Succinate (Toprol Xl) 25 mg DAILY PO Last administered on 02/06/19 12:03; Admin Dose 25 MG; Start 02/03/19 at 09:00 Benazepril HCl (Lotensin) 5 mg BID PO Last administered on 02/05/19 22:32; Admin Dose 5 MG; Start 02/03/19 at 11:30 Diagnostic Test (Pha) (Accu-Chek) 1 ea 02 XX Last administered on 02/06/19 02:30; Admin Dose 1 EA; Start 02/04/19 at 02:00 Insulin Glargine (Lantus) 13 units DAILY@1999 SC Last administered on 02/05/19 23:10; Admin Dose 13 UNITS; Start 02/03/19 at 20:00 Insulin Aspart (Novolog Insulin Pen) 4 unit WITH MEALS SC Last administered on 02/06/19 12:51; Admin Dose 4 UNIT; Start 02/03/19 at 12:45 Insulin Aspart (Novolog Insulin Pen) NOVOLOG *MILD* ALGORITHM WITH MEALS BEDTIME SC Last administered on 02/06/19 12:51; Admin Dose 4 UNIT; Start 02/03/19 at 12:45 Miscellaneous Information 1 ea NOTE XX ; Start 02/03/19 at 12:30 Glucose (Glutose) 15 gm Q15M PRN PO DECREASED GLUCOSE; Start 02/03/19 at 12:30 Glucose (Glutose) 22.5 gm Q15M PRN PO DECREASED GLUCOSE; Start 02/03/19 at 12:30 Dextrose (D50w Syringe) 25 ml Q15M PRN IV DECREASED GLUCOSE; Start 02/03/19 at 12:30 Dextrose (D50w Syringe) 50 ml Q15M PRN IV DECREASED GLUCOSE; Start 02/03/19 at 12:30 Glucagon (Glucagen) 1 mg Q15M PRN IM DECREASED GLUCOSE; Start 02/03/19 at 12:30 Glucose (Glutose) 15 gm Q15M PRN BUCCAL DECREASED GLUCOSE; Start 02/03/19 at 12:30 Ciprofloxacin/ Dextrose 200 ml @ 200 mls/hr Q12 IVPB Last administered on 02/06/19at 08:56; Admin Dose 200 MLS/HR; Start 02/04/19 at 09:00 Metronidazole 100 ml @ 100 mls/hr Q8 IVPB Last administered on 02/06/19 12:47; Admin Dose 100 MLS/HR; Start 02/03/19 at 22:00 Trazodone HCl (Desyrel) 25 mg HS PO Last administered on 02/05/19 22:33; Admin Dose 25 MG; Start 02/04/19 at 21:00 Furosemide (Lasix) 40 mg DAILY PO Last administered on 02/06/19 08:57; Admin Dose 40 MG; Start 02/06/19 at 09:00 Heparin Sodium (Porcine) (Heparin (5000 Units/1ml)) 5,000 unit BID SC Last administered on 02/06/19 09:04; Admin Dose 5,000 UNIT; Start 02/05/19 at 21:00 Phenol (Cepastat Lozenge) 1 lozenge Q1H PRN MT SORE THROAT Last administered on 02/06/19 02:21; Admin Dose 1 LOZENGE; Start 02/06/19 at 02:00 Sucralfate (Carafate) 1 gm Q6 PRN PO HEARTBURN Last administered on 02/06/19 08:57; Admin Dose 1 GM; Start 02/06/19 at 02:00 Morphine Sulfate (morphine) 1 mg Q4H PRN IV SEVERE PAIN LEVEL 7-10 Last administered on 02/06/19at 02:22; Admin Dose 1 MG; Start 02/06/19 at 02:00 Assessment/Plan Hospital Course (Demo Recall) congestive heart failure probably acute secondary systolic and diastolic heart failure as well as severe anemia Anemia etiology unclear Diabetes Hypertension Possible history of coronary artery disease and PCI Depression History of gynecological cancers Severe anemia status post transfusions Recommendations: lasix Anemia workup as per internal medicine/GI. Continue with HAYLIE inhibitor Diabetic management as per internal medicine will try to get auth to schedule for outpt card follow up Thank you for his referral. HENNY GALINDO MD [facility] HENNY GALINDO MD Feb 06, 2019 15:27
--- NOTE | 2019-02-06 19:22 | CONS ---
DATE OF ADMISSION: 02/04/2019 DATE OF CONSULTATION: Patient complains of epigastric pain and substernal discomfort which seems to be mostly functional in origin. She does have gastritis on the upper endoscopy. Colonoscopy showed hemorrhoids. Hemoglobi n has gone up to 10.7. PHYSICAL EXAMINATION: GENERAL: She is alert, mildly obese, not in distress. CARDIOVASCULAR: Normal heart sounds. RESPIRATORY: Normal breath sounds. ABDOMEN: Unremarkable. PLAN: Continue proton pump inhibitor therapy. Dictated By: MERY GONZALEZ MD NC/NTS Conf#: [id number] DID#: [id number] CC: MERY GONZALEZ MD; MEAGHAN GARCIA MD;*EndCC*
[2019-02-06 19:31] VITALS: BP 109/52; PULSE 66; RESP 19
[2019-02-06] MEDS ORDERED: CIPROFLOXACIN 500 MG TAB PO ONE (21:00)
[2019-02-06] MEDS ORDERED: metroNIDAZOLE 500 MG TAB PO ONE (21:00)
[2019-02-06] MEDS: ATORVASTATIN 40 MG TAB PO SCH (21:06)
[2019-02-06] MEDS: traZODone 50 MG TAB PO SCH (21:08)
[2019-02-06] MEDS: INSULIN GLARGINE [LANTus] (100 UNITS/ML) SYG SC SCH (21:39)
[2019-02-07] MEDS: ACCU-CHEK XX SCH (02:00)
[2019-02-07 03:15] VITALS: BP 111/53; PULSE 57; RESP 18
[2019-02-07] MEDS: LEVOTHYROXINE 125 MCG TAB PO SCH (06:31)
[2019-02-07] MEDS: metroNIDAZOLE 500 MG/NS (PMX) 100 ML IVPB SCH (06:31)
[2019-02-07] MEDS: PANTOPRAZOLE (EC) 40 MG TAB PO SCH (06:31)
[2019-02-07] MEDS: CEPASTAT LOZENGE MT PRN ×2 (06:33→14:50)
[2019-02-07 08:29] VITALS: BP 101/57; PULSE 64; RESP 18
[2019-02-07] MEDS: POLYETHYLENE GLYCOL 17 GM PACKET PO SCH ×2 (09:00→14:16)
[2019-02-07] MEDS: INSULIN ASPART [NOVOLOG] 3 ML PEN SC SCH ×7 (09:29→20:49)
[2019-02-07] MEDS: CIPROFLOXACIN 400MG/D5W 200 ML IVPB SCH (09:38)
[2019-02-07] MEDS: CLOPIDOGREL 75 MG TAB PO SCH (09:39)
[2019-02-07] MEDS: FUROSEMIDE 40 MG TAB PO SCH (09:39)
[2019-02-07] MEDS: ASPIRIN (EC) 81 MG TAB PO SCH (09:39)
[2019-02-07] MEDS: BENAZEPRIL 5 MG TAB PO SCH ×2 (09:39→20:46)
[2019-02-07] MEDS: DOCUSATE SODIUM 100 MG CAP PO SCH (09:39)
[2019-02-07] MEDS: ESCITALOPRAM 10 MG TAB PO SCH (09:39)
[2019-02-07] MEDS: METOPROLOL (XL) 25 MG TAB PO SCH (09:40)
[2019-02-07] MEDS: HEPARIN 5,000 UNIT/1 ML VIAL SC SCH ×2 (09:41→20:48)
[2019-02-07] MEDS ORDERED: morphine 2 MG INJ IV STA (12:29)
[2019-02-07 14:00] VITALS: BP 101/66; PULSE 65; RESP 17
[2019-02-07] MEDS: SUCRALFATE 1 GM TAB PO PRN ×2 (14:16→21:35)
--- NOTE | 2019-02-07 14:47 | PN ---
Date/Time of Note Date/Time of Note DATE: 02/07/19 TIME: 14:44 Assessment/Plan VTE Prophylaxis Risk score (from Nsg)>0 risk: 2 SCD applied (from Nsg): Yes Pharmacological prophylaxis: heparin Lines/Catheters IV Catheter Type (from Nrsg): Saline Lock Urinary Cath still in place: No Assessment/Plan Hospital Course 73 yo female with iron deficiency anemia, CAD, diastolic CHF - Stop abx, unclear indiction, no infection i can identify requiring cipro or flagyl Nose, throat pain: - nothing remarkable on exam. perhaps a viral illness. Supportive care Iron def anemia: - IV iron while here PUD - PPI Diastolic CHF: - Euvolemic now, continue PO lasix DMII: - Basal/bolus insulin Dischare home hopefully tomorrow Result Diagram: 02/06/19 0543 02/06/19 0543 Results 24hrs Laboratory Tests Test 02/06/19 17:29 02/06/19 21:01 02/07/19 02:15 02/07/19 09:26 Bedside Glucose 221 H 283 H 219 232 H Test 02/07/19 12:32 Bedside Glucose 324 H Subjective 24 Hr Interval Summary Free Text/Dictation Patient unable to be discharged yesterday as she felt unwell Today complains of throat pain and nasal congestion, mild epigastric pain Exam/Review of Systems Exam Vitals Vital Signs Date Temp Pulse Resp B/P (MAP) Pulse Ox O2 O2 Flow FiO2 Time Delivery Rate 02/07/19 98.4 64 18 101/57 95 Room Air 08:29 (72) Intake and Output 02/06/19 02/06/19 02/07/19 1515:00 23:00 07:00 IntakeIntake Total 400 ml 1300 ml 300 ml BalanceBalance 400 ml 1300 ml 300 ml Constitutional: alert, oriented, well developed Psych: no complaints, nl mood/affect Head: normocephalic, atraumatic Eyes: nl conjunctiva, EOMI, nl lids, nl sclera, PERRL ENMT: nl external ears & nose, nl lips & teeth, nl nasal mucosa & septum Neck: supple, non-tender Respiratory: clear to auscultation, normal air movement Cardiovascular: regular rate and rhythm, nl pulses Gastrointestinal: soft, nl liver, spleen, non-tender Musculoskeletal: nl extremities to inspection, nl gait and stance Extremities: normal pulses Neurological: RENAL TECHNICIAN II-XII intact, nl mental status, nl speech, nl strength Skin: nl turgor; No rash or lesions Lymph: nl lymph nodes Results Results 24hrs Laboratory Tests Test 02/06/19 17:29 02/06/19 21:01 02/07/19 02:15 02/07/19 09:26 Bedside Glucose 221 H 283 H 219 232 H Test 02/07/19 12:32 Bedside Glucose 324 H Medications Medication Current Medications IV Flush (NS 3 ml) 3 ml PER PROTOCOL IV ; Start 02/02/19 at 20:00 Ondansetron HCl (Zofran Inj) 4 mg Q6H PRN IV NAUSEA/VOMITING; Start 02/02/19 at 20:00 Acetaminophen (Tylenol Tab) 650 mg Q6H PRN PO .PAIN 1-3 OR TEMP Last administered on 02/05/19 21:24; Admin Dose 650 MG; Start 02/02/19 at 20:00 Docusate Sodium (Colace) 100 mg Q12H PRN PO .CONSTIPATION; Start 02/02/19 at 20:00 Bisacodyl (Dulcolax) 5 mg DAILY PRN PO .CONSTIPATION Last administered on 02/04/19 12:53; Admin Dose 5 MG; Start 02/02/19 at 20:00 Polyethylene Glycol (Miralax) 17 gm DAILY PO Last administered on 02/07/19 14:16; Admin Dose 17 GM; Start 02/03/19 at 01:00 Pantoprazole (Protonix Tab) 40 mg DAILY@06 PO Last administered on 02/07/19 06:31; Admin Dose 40 MG; Start 02/03/19 at 01:00 Aspirin (Halfprin) 81 mg DAILY PO Last administered on 02/07/19 09:39; Admin Dose 81 MG; Start 02/03/19 at 09:00 Atorvastatin Calcium (Lipitor) 40 mg QHS PO Last administered on 02/06/19 21:06; Admin Dose 40 MG; Start 02/03/19 at 21:00 Clopidogrel Bisulfate (plaVIX) 75 mg DAILY PO Last administered on 02/07/19 09:39; Admin Dose 75 MG; Start 02/03/19 at 09:00 Escitalopram Oxalate (Lexapro) 5 mg DAILY PO Last administered on 02/07/19 09:39; Admin Dose 5 MG; Start 02/03/19 at 09:00 Levothyroxine Sodium (Synthroid) 125 mcg BEFORE BREAKFAST PO Last administered on 02/07/19 06:31; Admin Dose 125 MCG; Start 02/03/19 at 07:00 Metoprolol Succinate (Toprol Xl) 25 mg DAILY PO Last administered on 02/07/19 09:40; Admin Dose 25 MG; Start 02/03/19 at 09:00 Benazepril HCl (Lotensin) 5 mg BID PO Last administered on 02/07/19 09:39; Admin Dose 5 MG; Start 02/03/19 at 11:30 Insulin Glargine (Lantus) 13 units DAILY@2000 SC Last administered on 02/06/19 21:39; Admin Dose 13 UNITS; Start 02/03/19 at 20:00 Insulin Aspart (Novolog Insulin Pen) 4 unit WITH MEALS SC Last administered on 02/07/19 12:36; Admin Dose 4 UNIT; Start 02/03/19 at 12:45 Insulin Aspart (Novolog Insulin Pen) NOVOLOG *MILD* ALGORITHM WITH MEALS BEDTIM E SC Last administered on 02/07/19 12:36; Admin Dose 5 UNIT; Start 02/03/19 at 12:45 Miscellaneous Information 1 ea NOTE XX ; Start 02/03/19 at 12:30 Glucose (Glutose) 15 gm Q15M PRN PO DECREASED GLUCOSE; Start 02/03/19 at 12:30 Glucose (Glutose) 22.5 gm Q15M PRN PO DECREASED GLUCOSE; Start 02/03/19 at 12:30 Dextrose (D50w Syringe) 25 ml Q15M PRN IV DECREASED GLUCOSE; Start 02/03/19 at 12:30 Dextrose (D50w Syringe) 50 ml Q15M PRN IV DECREASED GLUCOSE; Start 02/03/19 at 12:30 Glucagon (Glucagen) 1 mg Q15M PRN IM DECREASED GLUCOSE; Start 02/03/19 at 12:30 Glucose (Glutose) 15 gm Q15M PRN BUCCAL DECREASED GLUCOSE; Start 02/03/19 at 12:30 Trazodone HCl (Desyrel) 25 mg HS PO Last administered on 02/06/19 21:08; Admin Dose 25 MG; Start 02/04/19 at 21:00 Furosemide (Lasix) 40 mg DAILY PO Last administered on 02/07/19 09:39; Admin Dose 40 MG; Start 02/06/19 at 09:00 Heparin Sodium (Porcine) (Heparin (5000 Units/1ml)) 5,000 unit BID SC Last administered on 02/07/19 09:41; Admin Dose 5,000 UNIT; Start 02/05/19 at 21:00 Phenol (Cepastat Lozenge) 1 lozenge Q1H PRN MT SORE THROAT Last administered on 02/07/19at 06:33; Admin Dose 1 LOZENGE; Start 02/06/19 at 02:00 Sucralfate (Carafate) 1 gm Q6 PRN PO HEARTBURN Last administered on 02/07/19 14:16; Admin Dose 1 GM; Start 02/06/19 at 02:00 Morphine Sulfate (morphine) 1 mg Q4H PRN IV SEVERE PAIN LEVEL 7-10 Last administered on 02/06/19 02:22; Admin Dose 1 MG; Start 02/06/19 at 02:00 Ferric Sodium Gluconate Complex 125 mg/Sodium Chloride 100 ml @ 100 mls/hr DAILY@1300 IVPB ; Start 02/07/19 at 13:30; Stop 02/09/19 at 13:59 GRACIELA TOTH MD Feb 07, 2019 14:47
[2019-02-07] MEDS: SOD FERRIC GLUC COMPLX 125 MG in SOD CHLORIDE 0.9% 100 ML IVPB SCH (14:50)
[2019-02-07] MEDS ORDERED: CLOTRIMAZOLE 1% 45 GM VAG CR VAG ONE ×2 (17:00→18:00)
[2019-02-07 20:30] VITALS: BP 126/59; PULSE 66; RESP 18
[2019-02-07] MEDS: ATORVASTATIN 40 MG TAB PO SCH (20:45)
[2019-02-07] MEDS: traZODone 50 MG TAB PO SCH (20:46)
[2019-02-07] MEDS: INSULIN GLARGINE [LANTus] (100 UNITS/ML) SYG SC SCH (20:50)
[2019-02-08] MEDS ORDERED: LORAZEPAM 2 MG INJ IV ONE (01:00)
[2019-02-08] MEDS ORDERED: LIDOCAINE/MYLANTA 40 ML BTL PO ONE (01:00)
[2019-02-08] MEDS ORDERED: AL HYDROX/MG HYDROX/SIMETH 30 ML CUP PO PRN (01:00)
[2019-02-08 02:24] VITALS: BP 106/54; PULSE 71; RESP 18
[2019-02-08] MEDS: LEVOTHYROXINE 125 MCG TAB PO SCH (06:32)
[2019-02-08] MEDS: PANTOPRAZOLE (EC) 40 MG TAB PO SCH (06:32)
[2019-02-08 08:08] VITALS: BP 107/55; PULSE 78; RESP 17
[2019-02-08] MEDS: POLYETHYLENE GLYCOL 17 GM PACKET PO SCH (09:00)
[2019-02-08] MEDS: INSULIN ASPART [NOVOLOG] 3 ML PEN SC SCH ×7 (09:22→21:35)
[2019-02-08] MEDS: HEPARIN 5,000 UNIT/1 ML VIAL SC SCH ×2 (09:23→21:24)
[2019-02-08] MEDS: CLOPIDOGREL 75 MG TAB PO SCH (09:24)
[2019-02-08] MEDS: FUROSEMIDE 40 MG TAB PO SCH (09:25)
[2019-02-08] MEDS: METOPROLOL (XL) 25 MG TAB PO SCH (09:25)
[2019-02-08] MEDS: ESCITALOPRAM 10 MG TAB PO SCH (09:25)
[2019-02-08] MEDS: ASPIRIN (EC) 81 MG TAB PO SCH (09:25)
[2019-02-08] MEDS: BENAZEPRIL 5 MG TAB PO SCH ×2 (09:26→21:33)
[2019-02-08] MEDS: CEPASTAT LOZENGE MT PRN ×2 (09:34→21:50)
[2019-02-08] MEDS: SOD FERRIC GLUC COMPLX 125 MG in SOD CHLORIDE 0.9% 100 ML IVPB SCH (12:33)
[2019-02-08] MEDS: SUCRALFATE 1 GM TAB PO PRN (12:33)
[2019-02-08 14:11] VITALS: BP 117/53; PULSE 67; RESP 16
[2019-02-08] MEDS: OXYMETAZOLINE 0.05% 15 ML NAS SPRAY NASAL SCH ×3 (16:53→22:25)
--- NOTE | 2019-02-08 17:04 | DS ---
Date/Time of Note Date/Time of Note DATE: 02/08/19 TIME: 17:02 Discharge Summary Admission/Discharge Info Admit Date/Time Feb 04, 2019 at 11:19 Discharge Date/Time Discharge Diagnosis 1. Acute CHF -improved on diuresis, DC with Lasix p.o. -Echo shows an EF of 45% 2. severe symptomatic anemia improved post 2 units of PRBC -egd / colo shows only hemorrhoids and chronic gastritis, continue home PPI 3. Abdominal pain likely secondary to chronic gastritis -Continue PPI 4. multiple lung nodules: -stable on CT , d. Interval follow-up in 1 year could be obtained to ensure stability / resolution if there are any risk factors. 5.Chronic kidney injury: -Creatinine seems to be at baseline 6. hypertension: -Continue home meds 7. hyperlipidemia: Continue statin 8. hypothyroidism, continue levothyroxine 9. Hx of coronary artery disease status post PCI -Continue home Plavix 10 diabetes mellitus -a1C 7.5 -continue home metformin 11. history of uterine cancer: Status post hysterectomy. Patient Condition: Stable Hospital Course 73 yo female with iron deficiency anemia, CAD, diastolic CHF She was intially treated with empiric abx these were then held as she had no evidence of infection. Found to have iron deficiency anemia and underwnet EGD/colo notable only for gastritis. She was treated wtih IV iron. She was found to have mild diastolic CHF and given diuretics. She complained of throat pain following EGD responsive to GI cocktail. She was offered discharge twice but was very hesitant to go home. Today she became very emotional talking about how her son was murdered in [place] last year. She feels a lot of stress and anxiety from this. Denies any SI or overt depression. We agreed to let her stay overnight and go home in the AM Home Meds Active Scripts Furosemide* (Furosemide*) 40 Mg Tablet, 40 MG PO DAILY, #60 TAB Prov:KAREN BUTLER 02/06/19 Ondansetron (Ondansetron Odt) 4 Mg Tab.rapdis, 4 MG PO Q6H PRN for NAUSEA AND/OR VOMITING, #10 TAB Prov:JONY GONZALEZ MD 02/02/19 Ibuprofen* (Motrin*) 600 Mg Tab, 600 MG PO Q6H PRN for PAIN AND OR ELEVATED TEMP, #30 TAB Prov:JONY GONZALEZ MD 02/02/19 Docusate Sodium* (Colace*) 100 Mg Capsule, 100 MG PO TID, #30 CAP Prov:JONY GONZALEZ MD 02/02/19 Reported Medications Aspirin* (Aspirin* EC) 81 Mg Tablet.dr, 81 MG PO DAILY, TAB 02/02/19 Sitagliptin* (Januvia*) 100 Mg Tablet, 100 MG PO DAILY, #30 TAB 02/02/19 Clopidogrel Bisulfate* (Clopidogrel Bisulfate*) 75 Mg Tablet, 75 MG PO DAILY, #30 TAB 02/02/19 Atorvastatin* (Atorvastatin*) 40 Mg Tablet, 40 MG PO QHS, #30 TAB 02/02/19 Levothyroxine Sodium* (Levothyroxine Sodium*) 125 Mcg Tablet, 125 MCG PO BEFORE BREAKFAST, #30 TAB 02/02/19 Metoprolol Succinate* (Toprol XL*) 25 Mg Tab.sr.24h, 25 MG PO DAILY, #30 TAB 02/02/19 Pantoprazole* (Pantoprazole*) 40 Mg Tablet.dr, 40 MG PO AC BREAKFAST, TAB 02/02/19 Benazepril Hcl* (Benazepril Hcl*) 5 Mg Tablet, 5 MG PO DAILY, #30 TAB 02/02/19 Metformin Hcl* (Metformin Hcl*) 1,000 Mg Tablet, 1000 MG PO WITH BREAKFAST DINNE, #60 TAB 02/02/19 Escitalopram Oxalate* (Escitalopram Oxalate*) 5 Mg Tablet, 5 MG PO DAILY, #30 TAB 02/02/19 Follow-up Plan FOLLOW UP WITH YOUR PCP IN 1-2 WEEKS Primary Care Provider Not On Staff Doctor Pending Labs Laboratory Tests Test 02/07/19 17:41 02/07/19 20:43 02/08/19 02:17 02/08/19 09:20 Bedside 216 274 227 230 Glucose mg/dL (70-220) mg/dL (70-220) mg/dL (70-220) mg/dL (70-220) Test 02/08/19 12:02 02/08/19 16:56 Bedside 383 348 Glucose mg/dL (70-220) mg/dL (70-220) GRACIELA TOTH MD Feb 08, 2019 17:04
[2019-02-08] MEDS: LIDOCAINE/MYLANTA 40 ML BTL PO SCH ×2 (17:06→21:18)
[2019-02-08 20:00] VITALS: BP 117/56; PULSE 67; RESP 18
[2019-02-08] MEDS: ATORVASTATIN 40 MG TAB PO SCH (21:18)
[2019-02-08] MEDS ORDERED: INSULIN ASPART [NOVOLOG] 3 ML PEN SC ONE (21:30)
[2019-02-08] MEDS: INSULIN GLARGINE [LANTus] (100 UNITS/ML) SYG SC SCH (21:34)
[2019-02-08] MEDS: traZODone 50 MG TAB PO SCH (21:50)
[2019-02-08] MEDS: morphine 2 MG INJ IV PRN (21:51)
[2019-02-09 02:00] VITALS: BP 120/58; PULSE 69; RESP 18
[2019-02-09] MEDS ORDERED: ACCU-CHEK XX SCH (02:00)
[2019-02-09] MEDS: LEVOTHYROXINE 125 MCG TAB PO SCH (05:35)
[2019-02-09] MEDS: PANTOPRAZOLE (EC) 40 MG TAB PO SCH (05:35)
[2019-02-09] MEDS: CEPASTAT LOZENGE MT PRN (05:44)
[2019-02-09 08:16] VITALS: BP 118/70; PULSE 67; RESP 18
[2019-02-09] MEDS: INSULIN ASPART [NOVOLOG] 3 ML PEN SC SCH ×6 (08:47→17:47)
[2019-02-09] MEDS: HEPARIN 5,000 UNIT/1 ML VIAL SC SCH (08:49)
[2019-02-09] MEDS: ESCITALOPRAM 10 MG TAB PO SCH (08:50)
[2019-02-09] MEDS: BENAZEPRIL 5 MG TAB PO SCH (08:51)
[2019-02-09] MEDS: CLOPIDOGREL 75 MG TAB PO SCH (08:51)
[2019-02-09] MEDS: OXYMETAZOLINE 0.05% 15 ML NAS SPRAY NASAL SCH (08:52)
[2019-02-09] MEDS: FUROSEMIDE 40 MG TAB PO SCH (08:52)
[2019-02-09] MEDS: ASPIRIN (EC) 81 MG TAB PO SCH (08:52)
[2019-02-09] MEDS: METOPROLOL (XL) 25 MG TAB PO SCH (08:52)
[2019-02-09] MEDS: LIDOCAINE/MYLANTA 40 ML BTL PO SCH (10:37)
[2019-02-09] MEDS: POLYETHYLENE GLYCOL 17 GM PACKET PO SCH (10:37)
[2019-02-09] MEDS ORDERED: INSULIN GLARGINE [LANTus] (100 UNITS/ML) SYG SC ONE (12:30)
--- NOTE | 2019-02-09 12:48 | DS ---
DATE OF ADMISSION: 02/04/2019 DATE OF DISCHARGE: 02/09/2019 A 73-year-old female who was originally admitted 02/02/2019 with complaints of abdominal pain and radha e shortness of breath and she was managed for the following final diagnoses: 1. Acute congestive heart failure: Compensated. 2. Severe symptomatic anemia, status post 2 units of PRBC, status post EGD, colonoscopy that showed hemorrhoids and chronic gastritis. 3. Abdominal pain secondary to chronic gastritis and possible enteritis, status post antibiotic ther apy. 4. Multiple lung nodules, stable on CT with interval followup recommended in 1 year to ensure stabil ity and resolution. 5. Chronic kidney disease, creatinine at baseline. 6. Hypertension, well controlled. 7. Dyslipidemia, on statin. 8. Diabetes mellitus, A1c of 7.5 with suboptimal in-house control. Home regimen adjusted. 9. History of coronary artery disease status post PCI and Plavix. 10. Chronic hypothyroidism, on levothyroxine. 11. History of uterine cancer, status post hysterectomy. 12. Social issues due to depression and recent history of her son being murdered in [place] last year and with stress and anxiety for which patient is to be reviewed by social services specialist prior to discharge. CONSULTANTS ON THE CASE: GI, Dr. Carson Laboy. INTERVENTIONS: For a complete list and details of interventions and hospital course, please review p revious discharge summary dictated by Dr. Brooks on 02/06/2019, Dr. Loco 02/08/2019, but patient did undergo upper and lower endoscopy and she also had a CTA of her chest to evaluate lung nodules an d she was also seen in house by cardiology, Dr. Rodney López. DISPOSITION: To home. DISCHARGE ACTIVITY: Self-care activities as tolerated. DISCHARGE DIET: Recommended diet is a diabetic diet, 1800 calorie ADA. DISCHARGE MEDICATIONS: For a complete list of discharge medications, please review the patient's jazz rt. DISCHARGE CONDITION: Stable. FOLLOWUP: The patient is recommended to follow up with her primary care doctor within the next 1 to 2 weeks to ensure continued resolution of symptoms and further management. Note, patient denied suic idal or homicidal ideation. She also declined psychiatry evaluation, she was continued on previous h ome antidepressants. Time spent on discharge coordination so far more than 1/2 hour. Dictated By: NATHEN MONTERO MD BA/NTS Conf#: [id number] [facility]#: [id number] CC: MEAGHAN GARCIA MD;*[facility]*
[2019-02-09] MEDS: SUCRALFATE 1 GM TAB PO PRN (13:42)
[2019-02-09] MEDS: SOD FERRIC GLUC COMPLX 125 MG in SOD CHLORIDE 0.9% 100 ML IVPB SCH (13:42)
[2019-02-09] MEDS ORDERED: NYST1000 PO (14:46)
[2019-02-09] MEDS ORDERED: CARSUSP PO (14:46)
[2019-02-09] MEDS ORDERED: PANT40TA4 PO (14:47)
[2019-02-09] MEDS ORDERED: AL HYDROX/MG HYDROX/SIMETH 30 ML CUP PO ONE (15:00)
[2019-02-09] MEDS: NYSTATIN SUSP 5 ML CUP PO SCH ×2 (15:00→17:00)
[2019-02-09] MEDS ORDERED: AL HYDROX/MG HYDROX/SIMETH 30 ML CUP PO PRN (15:00)
[2019-02-09 15:14] VITALS: BP 147/66; PULSE 71; RESP 18
--- NOTE | 2019-02-09 15:40 | CONS ---
Consult Date/Type/Reason Admit Date/Time Feb 04, 2019 at 11:19 Initial Consult Date 02/03/19 Type of Consultation: cv Requesting Provider: MEAGHAN GARCIA Date/Time of Note DATE: 02/09/19 TIME: 15:39 Subjective Cardiology follow-up progress note Subjective: Case discussed with the staff and family pt is off tele now No chest pain or pressure. He still complains of abdominal discomfort but better c/ o constipation Objective: General: Obese female in no acute distress HEENT: NC/AT. pupils are equal. round. NECK: NO JVD. no stridor. CV: RRR. systolic murmur; no gallop or rubs. PULM: no wheezing or rhonchi. GI: SOFT, mild tenderness , no rebound or guarding Extremity: trace B/L LE edema. no clubbing. neuro: awake and alert, OX3. Psych: calm and pleasant rectal: deferred : normal EKG showed normal sinus rhythm. Poor R wave progression Echocardiogram was personally reviewed which shows: Normal left ventricular cavity size. Mild concentric left ventricular hypertrophy. Mild left ventricular systolic dysfunction. Ejection fraction is visually estimated at 45 %. Abnormal Diastolic Function. Multiple segmental wall motion abnormalities. Normal appearance of the mitral valve. Mild mitral annular calcification. Trace mitral regurgitation. No significant aortic stenosis or insufficiency. Aortic cusps appear mildly calcified. Normal appearance of the tricuspid valve. Estimated peak PA systolic pressure 43 mmHg. There is mild tricuspid regurgitation. Normal size and normal respiratory collapse consistent with normal right atrial pressure. Objective Vitals Vital Signs Date Temp Pulse Resp B/P (MAP) Pulse Ox O2 O2 Flow FiO2 Time Delivery Rate 02/09/19 98.0 71 18 147/66 95 Room Air 15:14 (93) Intake and Output 02/08/19 02/08/19 02/09/19 1515:00 23:00 07:00 IntakeIntake Total 920 ml 420 ml BalanceBalance 920 ml 420 ml Results/Medications Result Diagram: 02/06/19 0543 02/06/19 0543 Results 24 hrs Laboratory Tests Test 02/08/19 16:56 02/08/19 21:14 02/09/19 01:48 02/09/19 08:45 Bedside Glucose 348 H 380 H 270 H 252 H Test 02/09/19 12:42 Bedside Glucose 310 H Home Meds Active Scripts Pantoprazole* (Pantoprazole*) 40 Mg Tablet.dr, 40 MG PO BID, #60 TAB 1 Refill Prov:NATHEN MONTERO. 02/09/19 Sucralfate (Carafate) 1 Gm/10 Ml Oral.susp, 1 GM PO Q6 for 14 Days, #560 ML Prov:NATHEN MONTERO . 02/09/19 Nystatin (Nystatin) 100,000 Unit/1 Ml Oral.susp, 5 ML PO QID for 14 Days, #300 ML Prov:NATHEN MONTERO . 02/09/19 Furosemide* (Furosemide*) 40 Mg Tablet, 40 MG PO DAILY, #60 TAB Prov:KAREN BUTLER 02/06/19 Ondansetron (Ondansetron Odt) 4 Mg Tab.rapdis, 4 MG PO Q6H PRN for NAUSEA AND/OR VOMITING, #10 TAB Prov:JONY GONZALEZ MD 02/02/19 Docusate Sodium* (Colace*) 100 Mg Capsule, 100 MG PO TID, #30 CAP Prov:JONY GONZALEZ MD 02/02/19 Reported Medications Aspirin* (Aspirin* EC) 81 Mg Tablet.dr, 81 MG PO DAILY, TAB 02/02/19 Sitagliptin* (Januvia*) 100 Mg Tablet, 100 MG PO DAILY, #30 TAB 02/02/19 Clopidogrel Bisulfate* (Clopidogrel Bisulfate*) 75 Mg Tablet, 75 MG PO DAILY, #30 TAB 02/02/19 Atorvastatin* (Atorvastatin*) 40 Mg Tablet, 40 MG PO QHS, #30 TAB 02/02/19 Levothyroxine Sodium* (Levothyroxine Sodium*) 125 Mcg Tablet, 125 MCG PO BEFORE BREAKFAST, #30 TAB 02/02/19 Metoprolol Succinate* (Toprol XL*) 25 Mg Tab.sr.24h, 25 MG PO DAILY, #30 TAB 02/02/19 Benazepril Hcl* (Benazepril Hcl*) 5 Mg Tablet, 5 MG PO DAILY, #30 TAB 02/02/19 Metformin Hcl* (Metformin Hcl*) 1,000 Mg Tablet, 1000 MG PO WITH BREAKFAST DINNE, #60 TAB 02/02/19 Escitalopram Oxalate* (Escitalopram Oxalate*) 5 Mg Tablet, 5 MG PO DAILY, #30 TAB 02/02/19 Medications Current Medications IV Flush (NS 3 ml) 3 ml PER PROTOCOL IV ; Start 02/02/19 at 20:00 Ondansetron HCl (Zofran Inj) 4 mg Q6H PRN IV NAUSEA/VOMITING Last administered on 02/09/19 13:42; Admin Dose 4 MG; Start 02/02/19 at 20:00 Acetaminophen (Tylenol Tab) 650 mg Q6H PRN PO .PAIN 1-3 OR TEMP Last administered on 02/05/19 21:24; Admin Dose 650 MG; Start 02/02/19 at 20:00 Docusate Sodium (Colace) 100 mg Q12H PRN PO .CONSTIPATION; Start 02/02/19 at 20:00 Bisacodyl (Dulcolax) 5 mg DAILY PRN PO .CONSTIPATION Last administered on 02/04/19 12:53; Admin Dose 5 MG; Start 02/02/19 at 20:00 Polyethylene Glycol (Miralax) 17 gm DAILY PO Last administered on 02/09/19 10:37; Admin Dose 17 GM; Start 02/03/19 at 01:00 Pantoprazole (Protonix Tab) 40 mg DAILY@06 PO Last administered on 02/09/19 05:35; Admin Dose 40 MG; Start 02/03/19 at 01:00 Aspirin (Halfprin) 81 mg DAILY PO Last administered on 02/09/19 08:52; Admin Dose 81 MG; Start 02/03/19 at 09:00 Atorvastatin Calcium (Lipitor) 40 mg QHS PO Last administered on 02/08/19 21:18; Admin Dose 40 MG; Start 02/03/19 at 21:00 Clopidogrel Bisulfate (plaVIX) 75 mg DAILY PO Last administered on 02/09/19 08:51; Admin Dose 75 MG; Start 02/03/19 at 09:00 Escitalopram Oxalate (Lexapro) 5 mg DAILY PO Last administered on 02/09/19 08:50; Admin Dose 5 MG; Start 02/03/19 at 09:00 Levothyroxine Sodium (Synthroid) 125 mcg BEFORE BREAKFAST PO Last administered on 02/09/19 05:35; Admin Dose 125 MCG; Start 02/03/19 at 07:00 Metoprolol Succinate (Toprol Xl) 25 mg DAILY PO Last administered on 02/09/19 08:52; Admin Dose 25 MG; Start 02/03/19 at 09:00 Benazepril HCl (Lotensin) 5 mg BID PO Last administered on 02/09/19 08:51; Admin Dose 5 MG; Start 02/03/19 at 11:30 Insulin Aspart (Novolog Insulin Pen) NOVOLOG *MILD* ALGORITHM WITH MEALS BEDTIME SC Last administered on 02/09/19 12:45; Admin Dose 5 UNIT; Start 02/03/19 at 12:45 Miscellaneous Information 1 ea NOTE XX ; Start 02/03/19 at 12:30 Glucose (Glutose) 15 gm Q15M PRN PO DECREASED GLUCOSE; Start 02/03/19 at 12:30 Glucose (Glutose) 22.5 gm Q15M PRN PO DECREASED GLUCOSE; Start 02/03/19 at 12:30 Dextrose (D50w Syringe) 25 ml Q15M PRN IV DECREASED GLUCOSE; Start 02/03/19 at 12:30 Dextrose (D50w Syringe) 50 ml Q15M PRN IV DECREASED GLUCOSE; Start 02/03/19 at 12:30 Glucagon (Glucagen) 1 mg Q15M PRN IM DECREASED GLUCOSE; Start 02/03/19 at 12:30 Glucose (Glutose) 15 gm Q15M PRN BUCCAL DECREASED GLUCOSE; Start 02/03/19 at 12:30 Trazodone HCl (Desyrel) 25 mg HS PO Last administered on 02/08/19 21:50; Admin Dose 25 MG; Start 02/04/19 at 21:00 Furosemide (Lasix) 40 mg DAILY PO Last administered on 02/09/19 08:52; Admin Dose 40 MG; Start 02/06/19 at 09:00 Heparin Sodium (Porcine) (Heparin (5000 Units/1ml)) 5,000 unit BID SC Last administered on 02/09/19 08:49; Admin Dose 5,000 UNIT; Start 02/05/19 at 21:00 Phenol (Cepastat Lozenge) 1 lozenge Q1H PRN MT SORE THROAT Last administered on 02/09/19 05:44; Admin Dose 1 LOZENGE; Start 02/06/19 at 02:00 Morphine Sulfate (morphine) 1 mg Q4H PRN IV SEVERE PAIN LEVEL 7-10 Last administered on 3/24/19at 21:51; Admin Dose 1 MG; Start 02/06/19 at 02:00 Al Hydrox/Mg Hydrox/Simethicone (Mag-Al Plus) 30 ml Q6 PRN PO GASTROINTESTINAL UPSET Last administered on 02/08/19 09:38; Admin Dose 30 ML; Start 02/08/19 at 01:00 Miscellaneous Medication (Gi Cocktail (2)) 40 ml BID PO Last administered on 02/09/19 10:37; Admin Dose 40 ML; Start 02/08/19 at 16:00 Oxymetazoline HCl (Afrin [place]) 2 spray BID NASAL Last administered on 02/09/19 08:52; Admin Dose 2 SPRAY; Start 02/08/19 at 15:00 Diagnostic Test (Pha) (Accu-Chek) 1 ea 02 XX Last administered on 02/09/19at 01:54; Admin Dose 1 EA; Start 02/09/19 at 02:00; Stop 02/10/19 at 13:29 Insulin Aspart (Novolog Insulin Pen) 5 unit WITH MEALS SC Last administered on 02/09/19at 12:45; Admin Dose 5 UNIT; Start 02/09/19 at 11:30 Insulin Glargine (Lantus) 15 units DAILY@2000 SC ; Start 02/09/19 at 20:00 Sucralfate (Carafate) 1 gm Q6 PO ; Start 02/09/19 at 18:00 Nystatin (Nystatin Susp) 5 ml QID PO ; Start 02/09/19 at 15:00 Phenol (Chloraseptic Throat [place]) 2 spray ONCE ONCE MT ; Start 02/09/19 at 16:00; Stop 02/09/19 at 16:01 Al Hydrox/Mg Hydrox/Simethicone (Mag-Al Plus) 30 ml Q4H PRN PO GASTROINTESTINAL UPSET; Start 02/09/19 at 15:00 Assessment/Plan Hospital Course (Demo Recall) congestive heart failure probably acute secondary systolic and diastolic heart failure as well as severe anemia Anemia etiology unclear Diabetes Hypertension Possible history of coronary artery disease and PCI Depression History of gynecological cancers Severe anemia status post transfusions Recommendations: cont lasix Anemia workup as per internal medicine/GI. Continue with HAYLIE inhibitor Diabetic management as per internal medicine Thank you for his referral. HENNY GALINDO MD [facility] HENNY GALINDO MD Feb 09, 2019 15:40
[2019-02-09] MEDS ORDERED: PHENOL 1.4% SOLN 180 ML BTL MT ONE (16:00)
[2019-02-09] MEDS ORDERED: SUCRALFATE 1 GM TAB PO SCH (18:00)
--- NOTE | 2019-02-09 19:21 | CONS ---
DATE OF ADMISSION: 02/04/2019 DATE OF CONSULTATION: SUBJECTIVE: The patient at this time occasionally complains of having some difficulty in the throat like irritation in the throat. Upper endoscopy showed evidence of a normal mucosal pattern. PHYSICAL EXAMINATION: GENERAL: She is alert and at this moment she seems to be doing well without any complaints. She is well built. VITAL SIGNS: Afebrile. CARDIOVASCULAR: Normal heart sounds. RESPIRATORY: Normal breath sounds. ABDOMEN: Showed unremarkable findings. LABORATORY WORKUP: Hemoglobin 10.7, potassium is 4.1. Previous endoscopy showed evidence of gastrit is. No evidence of esophageal inflammation. CLINICAL IMPRESSION: History of sore throat, probably functional; however, ever treated with Gavisco n which can a ____ the mucosa of the esophagus which could help her symptoms, Gaviscon 1 ounce q.8h. p.r.n. Dictated By: MERY GONZALEZ MD NC/NTS Conf#: [id number] DID#: [id number] CC: MEAGHAN GARCIA MD;*End[facility]*
[2019-02-09] MEDS ORDERED: INSULIN GLARGINE [LANTus] (100 UNITS/ML) SYG SC SCH (20:00)
== END 2019-02-09 18:38 | disposition home or self-care (01) | DRG 291 ==
LOC: E/R 13:17 → 6WM 19:43 → OBSVTOIN 02-04 11:19 → PP2 02-07 03:20
PROVIDERS: ADMIT Family Medicine; ATTEND Family Medicine
PROC: 30233N1 Transfusion of Nonautologous Red Blood Cells into Peripheral Vein, Percutaneous Approach (ICD-10-PCS; 2019-02-02)
PROC: 0DJD8ZZ Inspection of Lower Intestinal Tract, Via Natural or Artificial Opening Endoscopic (ICD-10-PCS; 2019-02-05)
PROC: 0DB68ZX Excision of Stomach, Via Natural or Artificial Opening Endoscopic, Diagnostic (ICD-10-PCS; principal; 2019-02-05 11:30)
PROC: 0DJD8ZZ Inspection of Lower Intestinal Tract, Via Natural or Artificial Opening Endoscopic (ICD-10-PCS; 2019-02-05 11:30)
DX: I13.0 Hypertensive heart and chronic kidney disease with heart failure and stage 1 through stage 4 chronic kidney disease, or unspecified chronic kidney disease (principal); I50.41 Acute combined systolic (congestive) and diastolic (congestive) heart failure; Z68.1 Body mass index [BMI] 19.9 or less, adult; D62 Acute posthemorrhagic anemia; K29.30 Chronic superficial gastritis without bleeding; E11.22 Type 2 diabetes mellitus with diabetic chronic kidney disease; N18.9 Chronic kidney disease, unspecified; K64.9 Unspecified hemorrhoids; E78.5 Hyperlipidemia, unspecified; E03.9 Hypothyroidism, unspecified; I25.10 Atherosclerotic heart disease of native coronary artery without angina pectoris; R12 Heartburn; R91.8 Other nonspecific abnormal finding of lung field; Z79.84 Long term (current) use of oral hypoglycemic drugs
CPT/HCPCS: 36415; 36430; 71045; 71275; 74176; 76705; 80048; 80053; 80061; 81001; 82270; 82728; 82962; 83036; 83540; 83690; 83735; 83880; 84443; 84484; 85025; 85378; 86850; 86900; 86901; 86920; 87086; 88305; 88312; 93005; 93306; 93970; 96374; 96375; G0378; J0696; J0744; J1200; J1644; J1815; J1940; J2001; J2060; J2270; J2405; J2916; J3475; J7040; P9016; Q9967